=== PATIENT | female | born 1995 | race Two or more races ===

== ENCOUNTER 2024-01-02 11:23 | Outpatient (REF) | payer MEDICAID, OTHER, SELFPAY ==
[2024-01-02 13:27] LABS: Hematocrit 38.1 % (37.0-47.0); Hemoglobin 12.6 g/dl (12.0-16.0); Mean Corpuscular HGB Conc 33.1 g/dl (31.0-35.0); Mean Corpuscular Hemoglobin 29.1 pg (27.0-33.0); Mean Platelet Volume 10.7 fL (9.4-12.3); Platelet Count 195 X10*3/uL (160-400); Red Blood Count 4.33 X10*6/uL (4.20-5.50); Red Cell Distribution Width 13.7 % (11.0-16.0); White Blood Count 5.9 X10*3/uL (4.8-10.8)
[2024-01-02 13:57] LABS: Estimated Average Glucose 94 mg/dL; Hemoglobin A1c % 4.9 % (<6.0)
[2024-01-02 14:23] LABS: Alanine Aminotransferase 21 U/L (0-31); Albumin Level 4.7 g/dL (3.5-5.0); Alkaline Phosphatase 52 U/L (39-117); Anion Gap 13 (12-20); Aspartate Amino Transferase 22 U/L (5-31); Bilirubin Direct 0.2 mg/dL (0.0-0.5); Bilirubin Total 0.7 mg/dL (0.0-1.0); Blood Urea Nitrogen 11 mg/dL (9-16); Carbon Dioxide 24 mmol/L (22-29); Chloride 103 mmol/L (96-108); Cholesterol 259 mg/dL (<200); Estimated Glomerular Filt Rate > 60; Free T4 (Free Thyroxine) 0.72 ng/dL (0.71-1.85); Glucose Random 84 mg/dL (60-115); HCG Quantitative < 2 mIU/mL; HDL Cholesterol 121 mg/dL (>40); LDL Cholesterol Calculated 121 mg/dL (<100); Potassium 3.7 mmol/L (3.3-5.1); Sodium 136 mmol/L (135-145); Thyroid Stimulating Hormone 1.72 uIU/mL (0.32-4.0); Total Protein 8.2 g/dL (6.5-8.0); Triglycerides 87 mg/dL (<150); Vitamin D 25-OH Total 61.6 ng/mL (>30)
[2024-01-02 15:26] LABS: CT PCR NOT DETECTED (Not Detect.); NG PCR NOT DETECTED (Not Detect.)
[2024-01-03 08:27] LABS: Hepatitis A Antibody IgG REACTIVE (Nonreactive); ~Hepatitis A Antibody IgG 12.45 S/CO (0.00-0.99)
[2024-01-03 08:33] LABS: Mumps Virus IgG Antibody >300.00 AU/mL; Rubella IgG Antibody 9.05 Index; Varicella IgG Antibody <135.00 index
[2024-01-03 08:40] LABS: HBS Num1 0.73 mIU/mL (0-7.99); HBc Num1 0.09 S/CO (0.00-0.79); HBsAGNum1 0.38 S/CO (0.00-0.99); HIV AB/AG Nonreactive (Nonreactive); HIV Num 1 0.06 S/CO (0.00-0.99); Hepatitis B Core Antibody Nonreactive (Nonreactive); Hepatitis B Surface Antigen Negative (Negative); ~HepC Num1 0.12 S/CO (0.00-0.79); ~Hepatitis B Surface Antibody NONREACTIVE (Nonreactive); ~Hepatitis C Antibody Nonreactive (Nonreactive)
[2024-01-03 12:18] LABS: RPR Rapid Plasma Reagin REACTIVE (NON-REACTIVE)
[2024-01-04 22:09] LABS: TS Negative Control Passed; TS Panel A 0; TS Panel B 2; TS Positive Control Passed; TSpotTB Negative (Negative)
== END 2024-01-02 11:24 | disposition home or self-care (01) ==
LOC: HO.HHCL 11:23
PROVIDERS: Visit Provider Family Medicine
DX: Z00.00 Encounter for general adult medical examination without abnormal findings (principal); N92.0 Excessive and frequent menstruation with regular cycle
CPT/HCPCS: 36415; 80048; 80061; 80076; 82306; 83036; 84439; 84443; 84702; 85027; 86481; 86592; 86593; 86704; 86706; 86708; 86735; 86762; 86765; 86787; 86803; 87340; 87389; 87491; 87591

== ENCOUNTER 2024-01-19 10:44 | Emergency (ER) | payer MEDICAID, OTHER, SELFPAY ==
--- NOTE | ~2024-01-19 | US_ITS ---
EXAMINATION: US PELVIS CLINICAL INFORMATION: Pelvic pain, history of recent D&C. LMP approximately 3 weeks ago with ongoing bleeding. COMPARISON: None available. TECHNIQUE: Ultrasound of the pelvis is performed using both transabdominal and transvaginal transducers along with Doppler. Transvaginal imaging is performed due to inadequate visualization transabdominally. FINDINGS: Anteverted uterus with normal morphology measuring 8.8 x 3.2 x 3.8 cm. No uterine mass. Mild heterogeneity of the endometrial canal. Subcentimeter simple appearing cyst in the endometrium. No associated endometrial vascularity. The endometrium measures 0.6 cm in thickness. Cervix is not well seen due to shadowing from overlying bowel gas. Ovaries are normal in morphology with preserved flow on color Doppler at the moment of this examination. The right ovary measures 3.5 x 2.4 x 2.3 cm, 10 mL. The left ovary measures 2.7 x 2.1 x 2.1 cm, 6 mL. There is a 2.6 x 1.9 x 1.8 cm cystic observation in the right ovary with crenulated margins and peripheral color flow, most consistent with a corpus luteal cyst. There is a simple appearing dominant follicle in the left ovary measuring 1.3 cm. Nonspecific small amount of free fluid in the cul-de-sac and adjacent to the right adnexa. Engorged periovarian vasculature on the left adnexa. US/US pelvic and transvaginal IMPRESSION: 1. Mild heterogeneity of the endometrial canal without discrete associated vascularity, most likely related to blood products. Less likely, retained products of conception. Recommend clinical correlation. 2. Nonspecific simple appearing cyst in the upper endometrium, could be posttraumatic in etiology following D&C. Recommend follow-up with pelvic ultrasound in 3-6 weeks. 3. Engorged periovarian vasculature in the left adnexa which could be seen in the setting of pelvic venous insufficiency in the appropriate clinical context. 4. Small amount of free fluid in the cul-de-sac and adjacent to the right ovary, likely physiologic. Electronically signed by: Jodie Lopez MD 01/19/2024 03:03 PM EDT
[2024-01-19 10:56] VITALS: BP 107/63; PULSE 57; RESP 14; TEMP 36.2; O2SAT 100; BMI 23.1
[2024-01-19 11:36] LABS: MANUAL DIFF FLAG NO
[2024-01-19 11:38] LABS: Basophils Percent Auto 0.2 % (0-2); Eosinophils Absolute Auto 0.1 X10*3/uL (0.0-0.4); Eosinophils Percent Auto 1.3 % (0-4); Imm Gran Abs Auto 0.02 X10*3/uL (0.00-0.03); Imm Gran Pct Auto 0.3 % (0.0-0.4); Lymphocytes Percent Auto 49.3 % (20-40); Mean Corpuscular HGB Conc 33.3 g/dl (31.0-35.0); Mean Corpuscular Hemoglobin 29.3 pg (27.0-33.0); Mean Platelet Volume 9.9 fL (9.4-12.3); Monocytes Absolute Auto 0.5 X10*3/uL (0.1-1.2); Monocytes Percent Auto 7.4 % (2-11); Neutrophils Absolute Auto 2.5 x10*3/uL (2.0-8.3); Neutrophils Percent Auto 41.5 % (45-73); Platelet Count 189 X10*3/uL (160-400); Red Blood Count 4.43 X10*6/uL (4.20-5.50); Red Cell Distribution Width 13.1 % (11.0-16.0); White Blood Count 6.1 X10*3/uL (4.8-10.8)
[2024-01-19 11:46] LABS: INTERNATIONAL NORM RATIO 0.9 (0.9-1.1); Prothrombin Time 11.5 SEC (11.1-13.3)
[2024-01-19 11:49] LABS: Partial Thromboplastin Time 31.3 SEC (26.0-36.8)
[2024-01-19 12:00] LABS: Alanine Aminotransferase 31 U/L (0-31); Albumin Level 4.7 g/dL (3.5-5.0); Alkaline Phosphatase 55 U/L (39-117); Anion Gap 9 (12-20); Aspartate Amino Transferase 26 U/L (5-31); Bilirubin Direct 0.2 mg/dL (0.0-0.5); Bilirubin Total 0.5 mg/dL (0.0-1.0); Blood Urea Nitrogen 7 mg/dL (9-16); Carbon Dioxide 28 mmol/L (22-29); Chloride 106 mmol/L (96-108); Creatinine Clr Calc Pharmacy 101.7; Estimated Glomerular Filt Rate > 60; Glucose Random 70 mg/dL (60-115); Potassium 3.9 mmol/L (3.3-5.1); Sodium 139 mmol/L (135-145); Total Protein 8.2 g/dL (6.5-8.0)
[2024-01-19 12:05] LABS: HCG Quantitative < 2 mIU/mL
--- NOTE | 2024-01-19 12:22 | ED.GENADULT ---
HPI - General Adult General Chief complaint: Vaginal Bleeding Stated complaint: Vomiting/diarrhea Time Seen by Provider: 01/19/24 11:09 Source: patient, RN notes reviewed and historical interpreter Mode of arrival: ambulatory Limitations: language barrier History of Present Illness ED Provider: Ewelina Shields PA-C HPI narrative: This is a 28-year-old Slovenian-speaking female, , who presents emergency department with complaints of pelvic pain and vaginal bleeding. Patient reports that approximately 2 months ago she was 6 weeks along in her partner wanted her to have a . She [facility] they gave her sedation and used a ?suction device? to remove the fetus. Patient states that since this procedure she has had ongoing bleeding intermittently. She states that over the last 3 weeks she has had worsening suprapubic cramping. She states that she tested positive for chlamydia several weeks ago and was treated for this. She also tested positive for syphilis which she has had multiple injections for for treatment. She is currently being monitored by the [facility] for this. She denies any dysuria, hematuria, urinary frequency or urgency. She has been taking ibuprofen at home which has provided her with little relief. Denies any abnormal vaginal discharge. Denies any fevers, chills, chest pain, shortness breath, body aches, nausea, vomiting or diarrhea. MD complaint: Pelvic pain, vag bleeding Onset (ago): month(s) Relieving factors: none Exacerbating factors: none Associated symptoms: denies other symptoms Treatments prior to arrival: none Related Data Previous Rx's ?Medication ?Instructions ?Recorded doxycycline hyclate 100 mg capsule 100 mg PO BID 14 days #28 caps 01/19/24 metronidazole 500 mg tablet 500 mg PO BID 14 days #28 tabs 01/19/24 nitrofurantoin 100 mg PO Q12H 5 days #10 caps 01/19/24 monohydrate/macrocrystals 100 mg capsule (Macrobid) Allergies Allergy/AdvReac Type Severity Reaction Status Date / Time No Known Allergies Allergy Verified 01/19/24 11:00 Review of Systems Review of Systems: Yes all other systems are reviewed and are negative Constitutional: Constitutional: Reports as per HPI Physical Exam ED Vital Signs: Vital Signs - 24 hr 01/19/24 10:56 01/19/24 14:00 01/19/24 18:33 Temperature 97.2 F 98.4 F 98.4 F Pulse Rate 57 71 71 Respiratory Rate 14 18 18 Blood Pressure 107/63 102/52 L 102/52 L Pulse Oximetry 100 96 96 Oxygen Delivery Method Room Air Room Air Room Air BMI result Body Mass Index 23.1 Const General: cooperative, comfortable and no acute distress Orientation/consciousness: patient oriented x3 Limitations: no limitations HENMT Head: Yes normal to inspection, Yes normocephalic and Yes atraumatic Ears: hearing grossly normal bilaterally General nose exam: Normal external nose present Face and sinus: Yes normal facial exam Mouth: Normal oral and palatal mucosa present, oropharynx normal and moist mucous membranes Throat: Yes posterior oropharynx normal Eyes General: appearance normal, both eyes and all related structures Eyelids: Yes eyelids normal Conjunctivae: conjunctivae normal Sclerae: sclerae normal Pupils: Equal, round and reactive pupils present EOM: EOMs intact bilaterally Neck Neck: Yes normal visual inspection, Yes full ROM and Yes no lymphadenopathy Lymphatic: no lymphadenopathy noted Chest Chest palpation & inspection: normal inspection of the chest Resp Effort & Inspection: normal respiratory effort and able to speak in complete sentences Auscultation: clear to auscultation bilaterally, no crackles, no rales, no rhonchi and no wheezes Cardio Rate: regular rate Rhythm: regular rhythm Heart sounds: S1 normal heart sound present and S2 normal heart sound present GI Other: Suprapubic tenderness on examination. Inspection: Yes normal to inspection Other: examination performed with research tech present at all times. Normal external genitalia Vaginal vault, with closed cervical os, scant white, greenish tinge vaginal discharge present, no blood in vaginal vault. She does have cervical motion tenderness. He also has tenderness palpation along the left adnexal and right adnexal regions. Skin General skin exam: no rashes or lesions noted Trauma: no lacerations or abrasions Wounds: no wounds Neuro General: patient oriented x3 and moves all extremities Cranial nerves: Yes Equal, round and reactive pupils present Extrem General: Yes normal to inspection Right upper extremity: normal to inspection Left upper extremity: normal to inspection Right lower extremity: normal to inspection Left lower extremity: normal to inspection Medications Administered Discontinued Medications Generic Name Dose Route Start Last Admin Trade Name Freq PRN Reason Stop Dose Admin Ceftriaxone Sodium 1 gm/ 0 gm 01/19/24 18:06 01/19/24 18:27 Lidocaine HCl 2.1 ml IM 01/19/24 18:07 1 kit ONCE ONE Administration Medical Decision Making Medical Decision Making [facility] Narrative: This is a 28-year-old Slovenian-speaking female who presents emergency department with complaints of abnormal uterine bleeding for the last 2 months after having a D&C performed 2 months ago. She states that over the last 3 weeks she has had ongoing pelvic pain. She states that she had an episode of abnormal uterine bleeding yesterday. She states that she saturated approximately 4-6 pads throughout the day. She states that she tested positive for chlamydia over the course of the last 2 months, and she was treated. She also tested positive for syphilis, she is currently being followed by the [facility] for this. She last received a penicillin G injection yesterday. On examination, she does have suprapubic tenderness on examination. She also has vaginal discharge and cervical motion tenderness, concerning for pelvic inflammatory disease. Given recent D&C, ultrasound was performed. Pelvic ultrasound revealing mild heterogenicity of the endometrial canal without discrete associated vascularity, most likely related to blood products, less likely retained products of conception. There is a simple appearing cyst in the upper endometrium. There is also an engorged periovarian vasculature in the left adnexa which could be seen in the setting of pelvic venous insufficiency. There is also a small amount of free fluid in the cul-de-sac. I discussed this workup and patient's case with KHALIDA, Dr. Burleson. He recommends testing for chlamydia and gonorrhea. Also recommends 1 time dose of ceftriaxone, discharged on Flagyl, doxycycline, and Macrobid to treat for urinary tract infection as well. She was given referral to his office for further management symptoms. She was given strict return precautions. She understands and agrees with plan. Patient stable for discharge. Differential Diagnosis Differential Diagnoses: The differential diagnosis associated with the presentation includes Pelvic inflammatory disease, UTI, retained products of conception, , STI Admission/Observation Consideration of admission/observation: Escalation of care including admission/observation considered Consult Healthcare Provider Management of the patient was discussed with: [employer] Inspector KHALIDA Ann Lab Data [facility] Lab Attestation statement: I reviewed the patient's lab results. No leukocytosis, stable H&H, chemistry within normal limits, urine with moderate leuk esterases, will treat as urinary tract infection. She tested positive for bacterial vaginosis. HSV pending 01/19/24 11:31 01/19/24 11:31 Labs: Lab Results 01/19/24 01/19/24 01/19/24 Range/Units 11:31 12:17 12:42 WBC 6.1 (4.8-10.8) X10*3/uL RBC 4.43 (4.20-5.50) X10*6/uL Hgb 13.0 (12.0-16.0) g/dl Hct 39.0 (37.0-47.0) % MCV 88.0 (80.0-98.0) fL MCH 29.3 (27.0-33.0) pg MCHC 33.3 (31.0-35.0) g/dl RDW 13.1 (11.0-16.0) % Plt Count 189 (160-400) X10*3/uL MPV 9.9 (9.4-12.3) fL Immature Gran % (Auto) 0.3 (0.0-0.4) % Neut % (Auto) 41.5 L (45-73) % Lymph % (Auto) 49.3 H (20-40) % Jay % (Auto) 7.4 (2-11) % Eos % (Auto) 1.3 (0-4) % Baso % (Auto) 0.2 (0-2) % Lymph # (Auto) 3.0 (1.2-4.9) X10*3/uL Jay # (Auto) 0.5 (0.1-1.2) X10*3/uL Eos # (Auto) 0.1 (0.0-0.4) X10*3/uL Baso # (Auto) 0.0 (0.0-0.2) X10*3/uL Abs Immat Gran (auto) 0.02 (0.00-0.03) X10*3/uL Absolute Neuts (auto) 2.5 (2.0-8.3) x10*3/uL Absolute Nucleated RBC 0.000 (0.0-0.012) X10*3/uL Nucleated RBC % (auto) 0.0 (0.0-0.2) /100WBC PT 11.5 (11.1-13.3) SEC INR 0.9 (0.9-1.1) APTT 31.3 (26.0-36.8) SEC Sodium 139 (135-145) mmol/L Potassium 3.9 (3.3-5.1) mmol/L Chloride 106 (96-108) mmol/L Carbon Dioxide 28 (22-29) mmol/L Anion Gap 9 L (12-20) BUN 7 L (9-16) mg/dL Creatinine 0.77 (0.5-1.4) mg/dL Estim Creat Clear Calc 101.7 Estimated GFR > 60 Random Glucose 70 (60-115) mg/dL Calcium 10.0 (8.4-10.2) mg/dL Total Bilirubin 0.5 (0.0-1.0) mg/dL Direct Bilirubin 0.2 (0.0-0.5) mg/dL AST 26 (5-31) U/L ALT 31 (0-31) U/L Alkaline Phosphatase 55 (39-117) U/L Total Protein 8.2 H (6.5-8.0) g/dL Albumin 4.7 (3.5-5.0) g/dL Beta HCG, Quant < 2 mIU/mL Urine Color Yellow Urine Appearance Turbid Urine pH 8.5 (5.0-9.0) Ur Specific [place] 1.025 (1.005-1.025) Urine Protein 30 (1+) H (Neg-Trace) mg/dL Urine Glucose (UA) Negative (Negative) mg/dL Urine Ketones Negative (Negative) mg/dL Urine Blood Negative (Negative) Urine Nitrite Negative (Negative) Ur Leukocyte Esterase Moderate (2+) H (Negative) Urine RBC 0-2 (0-2) /HPF Urine WBC 6-10 (0-5) /HPF Ur Squamous Epith Cells 11-20 (0-2) /HPF Other Crystals Present Urine Bacteria 2+ (None Seen) Hyaline Casts 0-2 (0-2) /LPF Chlam trachomat DNA PCR NOT DETECTED (Not Detect.) N.gonorrhoeae DNA (PCR) NOT DETECTED (Not Detect.) T. vaginalis (PCR) NOT DETECTED (Not Detect) Bact Vaginosis (PCR) POSITIVE A (Negative) C. krusei/glabrata (PCR) NOT DETECTED (Not Detect) Shira group (PCR) NOT DETECTED (Not Detect) Radiology Impression Discussion of test interpretation with radiology: I have reviewed the radiologist's reading. Radiologist Impression: US/US pelvic and transvaginal IMPRESSION: 1. Mild heterogeneity of the endometrial canal without discrete associated vascularity, most likely related to blood products. Less likely, retained products of conception. Recommend clinical correlation. 2. Nonspecific simple appearing cyst in the upper endometrium, could be posttraumatic in etiology following D&C. Recommend follow-up with pelvic ultrasound in 3-6 weeks. 3. Engorged periovarian vasculature in the left adnexa which could be seen in the setting of pelvic venous insufficiency in the appropriate clinical context. 4. Small amount of free fluid in the cul-de-sac and adjacent to the right ovary, likely physiologic. Electronically signed by: Jodie Lopez MD 01/19/2024 03:03 PM EDT RP Dictated By: Jodie Lopez Discharge Plan Discharge Clinical Impression: Abnormal uterine bleeding (AUB), Pelvic pain Patient Disposition: Home, Self-Care Instructions: Dysfunctional Uterine Bleeding (ED), Pelvic Pain in Women (ED) Additional Instructions: You were seen in the emergency department due to continued pelvic pain and bleeding. You tested positive for bacterial vaginosis, this is an overgrowth of the normal estefania in your vagina. Your ultrasound shows pelvic congestion syndrome. Urine appears to be infected. We gave you a dose of ceftriaxone in the emergency room. Please take all prescribed medications as directed. Finish the entire courses of antibiotics even if your symptoms improve. If any new or worsening symptoms occur including but not limited to worsening pain, fevers, chills, significant vaginal bleeding, please return. Follow-up with the OBGYN, call on Monday to make an appointment. Prescriptions: New nitrofurantoin monohyd/m-cryst [Macrobid] 100 mg capsule 100 mg PO Q12H 5 Days Qty: 10 0RF Rx Instructions: must administer with a meal/food doxycycline hyclate 100 mg capsule 100 mg PO BID 14 Days Qty: 28 0RF metronidazole 500 mg tablet 500 mg PO BID 14 Days Qty: 28 0RF Referrals: [facility] [place] Women's Services [Provider Group] Stand Alone Forms: Work/School Release Interventions: ED Discharge Assessment Last Done: 01/19/24 18:33 Discharge Date/Time: 01/19/24 18:33 Print Language: Slovenian
[2024-01-19 12:28] LABS: Appearance Urine Turbid; Color Urine Yellow; Glucose Urine UA Negative (Negative); Leukocyte Esterase Urine Moderate (2+) (Negative); Nitrite Urine Negative (Negative); PH 8.5 (5.0-9.0); Specific Gravity - Urine 1.025 (1.005-1.025); UMIC TRIGGER UACC YES; Urine Blood Negative (Negative); Urine Ketones Negative (Negative); Urine Protein 30 (1+) mg/dL (Neg-Trace)
[2024-01-19 12:36] LABS: Bacteria Urine 2+ (None Seen); Hyaline Casts Urine 0-2 /LPF (0-2); Other Crystals Urine Present; RBC Urine 0-2 /HPF (0-2); UACC Culture Trigger YES
[2024-01-19 13:54] LABS: Bacterial Vaginosis PCR POSITIVE (Negative); Candida Group PCR NOT DETECTED (Not Detect); Candida glab krusei PCR NOT DETECTED (Not Detect); Trichomonas vaginalis PCR NOT DETECTED (Not Detect)
[2024-01-19 14:00] VITALS: BP 102/52; PULSE 71; RESP 18; TEMP 36.9; O2SAT 96
--- NOTE | 2024-01-19 16:34 | P.CONOB_ITS ---
REFRIGERATION REPAIR SUPERVISOR - CN: HPI Data of Consult Consult date: 01/19/24 Primary Care Provider: [facility] Consult Narrative Narrative: I was consulted on Elizabet Bridges who is a 28 year old female presenting to the emergency room complaining of pelvic pain of 3 weeks' duration associated withvagin al bleeding. The patient is status post suction D&C for termination of 6 weeks ago. Since then the patient has been having vaginal bleeding intermittently. She states that over the last week she has had worsening suprapubic cramping. In the emergency room H&H within normal, hCG less than 2, urinalysis was positive for leukocyte esterase, pelvic ultrasound was done. cc:: CC: OB [facility] Social History Social History Advance Directives: No Advance Directives Information Provided: Yes Meds Allergies Allergy/AdvReac Type Severity Reaction Status Date / Time No Known Allergies Allergy Verified 01/19/24 11:00 REFRIGERATION REPAIR SUPERVISOR Physical Exam Vitals Vital signs: Temp Pulse Resp BP Pulse Ox O2 Del Method 98.4 F 71 18 102/52 L 96 Room Air 01/19/24 14:00 01/19/24 14:00 01/19/24 14:00 01/19/24 14:00 01/19/24 14:00 01/19/24 14:00 BMI result Body Mass Index 23.1 Additional Comments: Physical exam reported by RUFINO Rabago as the following suprapubic tenderness, cervical motion, uterine or adnexal tenderness flow cervix , no blood per vagina I am in no evidence of active bleeding REFRIGERATION REPAIR SUPERVISOR - Results Labs 01/19/24 11:31 01/19/24 11:31 Labs: Short CBC 01/19/24 Range/Units 11:31 WBC 6.1 (4.8-10.8) X10*3/uL Hgb 13.0 (12.0-16.0) g/dl Hct 39.0 (37.0-47.0) % Plt Count 189 (160-400) X10*3/uL BMP 01/19/24 11:31 Sodium 139 Potassium 3.9 Chloride 106 Carbon Dioxide 28 BUN 7 L Creatinine 0.77 Calcium 10.0 Liver Function 01/19/24 Range/Units 11:31 Total Bilirubin 0.5 (0.0-1.0) mg/dL Direct Bilirubin 0.2 (0.0-0.5) mg/dL AST 26 (5-31) U/L ALT 31 (0-31) U/L Alkaline Phosphatase 55 (39-117) U/L Albumin 4.7 (3.5-5.0) g/dL Urine 01/19/24 Range/Units 12:17 Urine Color Yellow Urine Appearance Turbid Urine pH 8.5 (5.0-9.0) Ur Specific [place] 1.025 (1.005-1.025) Urine Protein 30 (1+) H (Neg-Trace) mg/dL Urine Glucose (UA) Negative (Negative) mg/dL Imaging US - abdomen: Radiologist's impression: ITS Impressions Pelvic/Transvag US 01/19/24 12:58 IMPRESSION: 1. Mild heterogeneity of the endometrial canal without discrete associated vascularity, most likely related to blood products. Less likely, retained products of conception. Recommend clinical correlation. 2. Nonspecific simple appearing cyst in the upper endometrium, could be posttraumatic in etiology following D&C. Recommend follow-up with pelvic ultrasound in 3-6 weeks. 3. Engorged periovarian vasculature in the left adnexa which could be seen in the setting of pelvic venous insufficiency in the appropriate clinical context. 4. Small amount of free fluid in the cul-de-sac and adjacent to the right ovary, likely physiologic. Electronically signed by: Jodie Lopez MD 01/19/2024 03:03 PM EDT RP Assessment and Plan (1) Abnormal uterine bleeding (AUB): Status: Acute Since the patient is not actively bleeding with normal H&H and closed cervix and an ultrasound low likelihood of retained products of conception, recommended outpatient close follow-up for workup and management of abnormal uterine bleeding including the finding of abnormal endometrium by ultrasound. Instructions to be given to the patient to call or come back to emergency room in case of heavy vaginal bleeding. (2) Pelvic pain: Status: Acute Recommended the following: Send urine for culture, treat with antibiotics for UTI, suggest Macrobid 100 mg p.o. b.i.d. for 5 days. GC/CT with BV panel and Trichomonas to be collected. Since the patient has suprapubic tenderness tenderness, cervical motion and uterine with adnexal tenderness, recommended to treat for PID with outpatient CDC regimen including ceftriaxone 500 mg IM x1, Flagyl 500 mg p.o. b.i.d. with doxycycline 100 mg p.o. b.i.d. for 14 days to follow-up in the office within few days. Instructions to be given to patient to come back to emergency room in case of nausea or vomiting, fever above 100.4, persistence or worsening of her pain. I spent a total of 20 minute reviewing the chart, communicating to the emergency room provider and documenting medical record.
--- NOTE | 2024-01-19 16:38 | PC.NURSE ---
spoke with Shani in Lab- Ct/NG added on
[2024-01-19] MEDS: cefTRIAXone sodium 1 GM, Lidocaine HCl 1 % MPF 2.1 ML IM (18:27)
[2024-01-19 18:33] VITALS: BP 102/52; PULSE 71; RESP 18; TEMP 36.9; O2SAT 96
[2024-01-19 18:39] LABS: CT PCR NOT DETECTED (Not Detect.); NG PCR NOT DETECTED (Not Detect.)
== END 2024-01-19 18:33 | disposition home or self-care (01) ==
PROVIDERS: Physician Assistant Medical; Emergency Provider Emergency Medicine
DX: N93.9 Abnormal uterine and vaginal bleeding, unspecified (principal); R10.2 Pelvic and perineal pain
CPT/HCPCS: 0352U; 36415; 76830; 76856; 80048; 80076; 81001; 84702; 85025; 85610; 85730; 87086; 87255; 87491; 87591; 96372; 99283; 99284; J0696

== ENCOUNTER 2024-01-25 09:17 | Outpatient (AMB) | payer SELFPAY ==
[2024-01-25 09:39] VITALS: BP 102/60; BMI 23.1
--- NOTE | 2024-01-25 09:39 | MHC.OFFVIS ---
Vital Signs 01/25/24 09:39 Height 5 ft 6 in Weight 143 lb 4.807 oz BMI 23.1 BP 102/60 Intake Visit Reasons: PID/AUB Chief Substation Operator Required: Yes Chief Substation Operator Language: [employer] Management Technician Services: Chief Substation Operator Present (in person) Chief Substation Operator Name: Radha DILLARD Information Interpreted: non-clinical & clinical Flag Decorator: Flag Decorator Present (Radha DILLARD) Accompanied by: Self / Same As Patient Allergies No Known Allergies Allergy (Verified 01/25/24 09:44) Is last menstrual period known: Yes HPI Comments Details: Presenting for follow-up from emergency room visit few days ago with the patient presented to the emergency room complaining of pelvic pain of 3 weeks' duration associated with vaginal bleeding. The patient underwent suction D&C for termination of 6 weeks ago. Since then the patient has been having vaginal bleeding intermittently associated with pelvic cramping. In the emergency room the following workup was done: H&H within normal hCG less than 2 GC/CT, BV panel negative urinalysis was positive for leukocyte esterase, urine culture was negative Pelvic ultrasound showed the following: IMPRESSION: 1. Mild heterogeneity of the endometrial canal without discrete associated vascularity, most likely related to blood products. Less likely, retained products of conception. Recommend clinical correlation. 2. Nonspecific simple appearing cyst in the upper endometrium, could be posttraumatic in etiology following D&C. Recommend follow-up with pelvic ultrasound in 3-6 weeks. 3. Engorged periovarian vasculature in the left adnexa which could be seen in the setting of pelvic venous insufficiency in the appropriate clinical context. 4. Small amount of free fluid in the cul-de-sac and adjacent to the right ovary, likely physiologic. The patient was given ceftriaxone 500 mg IM and was discharged on doxycycline/Flagyl for possible endometritis . Since then the patient is doing well , her pain has all completely resolved , no fever or chills, no nausea or vomiting, no pelvic pain or abdominal and no vaginal bleeding . [facility] Surgical History Hx of hernia repair Hx of dilation and curettage Family History Mother Hyperlipidemia Brother Autism Asperger syndrome Social History Household Members Other:: son Housing Other:: nursing home Alcohol intake: current Alcohol intake frequency: holidays/special occasions only Patient Tobacco Use Status: Never used Tobacco Current occupational status: employed Current occupation: [employer] Sexually active: No Sexual orientation: Straight/Heterosexual Gender identity: Female Female Reproductive History Menstrual Total pregnancies: 4 Full term: 1 Number of Living Children: 1 Ab spontaneous: 3 Review of Systems Const All systems reviewed & are unremarkable except as noted in HPI and below Physical Exam Vital Signs: Last Vital Signs BP 102/60 01/25/24 09:39 BMI result Body Mass Index 23.1 GI Palpation (GI): Soft to palpation and nontender General: Yes no CVA tenderness External Female Exam: normal external appearance and normal appearance of the urethra Speculum Exam - Vagina: normal appearance of the vagina, normal palpation, no lesions and no masses Speculum Exam - Cervix: normal appearance of the cervix, normal palpation, no lesions, no masses and nontender Bimanual exam- vagina & uterus: normal bimanual exam, normal palpation, uterine size normal, normal palpation, uterine shape normal, No Cervical tenderness present and non-tender Bimanual Exam- Adnexa, other: normal adnexae Back/Spine/Pelvis Back: no CVA tenderness Results AMB Test Urine AMB Test Urine Negative Last Edit by Radha Freedman CMA on 01/25/24 09:52 Results Reviewed Results Reviewed: Laboratory Last Values Tst Clinic Negative 01/25/24 09:51 Assessment & Plan Assessment & Plan (1) Abnormal uterine bleeding (AUB): Code(s): N93.9 - Abnormal uterine and vaginal bleeding, unspecified Category: Medical Plan: Will order CBC, TSH, prolactin, HCG, . Discussed with the patient the different causes of abnormal bleeding including thyroid disorders, uterine and ovarian pathology and other potential causes. Discussed with the patient the work up including CBC (to r/o anemia), TSH, prolactin. All questions answered and the patient verbalized understanding. Instructed the patient to schedule a follow-up appointment in 2 weeks. (2) Endometritis: Code(s): N71.9 - Inflammatory disease of uterus, unspecified Category: Medical Plan: Instructions given the patient to complete the 14 day course of doxycycline/flat (3) Abnormal ultrasound of endometrium: Code(s): R93.5 - Abnormal findings on diagnostic imaging of other abdominal regions, including retroperitoneum Category: Medical Plan: Discussed with the patient the finding on ultrasound was in college vasculature possible pelvic congestion syndrome or nonspecific findings in addition the and normal endometrium possibly related to previous D&C, recommended repeat ultrasound in 3 months. Instructions given the patient to schedule ultrasound appointment and a follow-up appointment afterwards in 3 months. All questions answered, the patient verbalized understand (4) Family planning: Code(s): Z30.09 - Encounter for other general counseling and advice on contraception Category: Social Hx Plan: Discussed with the patient the different options of control including control pills/Nuvaring, Depo Medroxy Progesterone Acetate, IUD ( levonorgestrel, Copper), sterilization. All the pros, cons, risks and benefits of each were discussed with the patient. The patient decided to go think about it and get back to us. Orders: Orders HCG Quantitative Today N93.9 - Abnormal uterine and vaginal bleeding, unspecified Complete Blood Count no Diff Today N93.9 - Abnormal uterine and vaginal bleeding, unspecified US pelvic and transvaginal 3 Months R93.5 - Abnormal findings on diagnostic imaging of other abdominal regions, including retroperitoneum AMB HCG Urine Test Today Z32.02 - Encounter for test, result negative TSH reflex Free T4 Today N93.9 - Abnormal uterine and vaginal bleeding, unspecified Prolactin Today N93.9 - Abnormal uterine and vaginal bleeding, unspecified Coding Level of Care Code Est Pt Level 3 (34131) Diagnoses Abnormal uterine bleeding (AUB) N93.9 Endometritis N71.9 Abnormal ultrasound of endometrium R93.5 Family planning Z30.09
== END 2024-01-25 10:10 | disposition home or self-care (01) ==
PROVIDERS: Visit Provider Obstetrics & Gynecology
DX: N93.9 Abnormal uterine and vaginal bleeding, unspecified (principal); N71.9 Inflammatory disease of uterus, unspecified; R93.5 Abnormal findings on diagnostic imaging of other abdominal regions, including retroperitoneum; Z30.09 Encounter for other general counseling and advice on contraception; Z32.02 Encounter for pregnancy test, result negative
CPT/HCPCS: 99213

== ENCOUNTER 2024-01-25 09:17 | Outpatient (REF) | payer MEDICAID, OTHER, SELFPAY ==
[2024-01-25 11:44] LABS: Hematocrit 35.2 % (37.0-47.0); Hemoglobin 11.7 g/dl (12.0-16.0); Mean Corpuscular HGB Conc 33.2 g/dl (31.0-35.0); Mean Corpuscular Hemoglobin 29.3 pg (27.0-33.0); Mean Corpuscular Volume 88.2 fL (80.0-98.0); Mean Platelet Volume 9.9 fL (9.4-12.3); Platelet Count 192 X10*3/uL (160-400); Red Blood Count 3.99 X10*6/uL (4.20-5.50); Red Cell Distribution Width 13.2 % (11.0-16.0); White Blood Count 5.6 X10*3/uL (4.8-10.8)
[2024-01-25 12:37] LABS: HCG Quantitative < 2 mIU/mL; TSH reflex Free T4 1.08 uIU/mL (0.32-4.0)
[2024-01-26 09:08] LABS: Prolactin 9.8 ng/mL
== END 2024-01-25 09:18 | disposition home or self-care (01) ==
LOC: HO.LAB 09:17
PROVIDERS: Visit Provider Obstetrics & Gynecology
DX: Z30.09 Encounter for other general counseling and advice on contraception (principal); N93.9 Abnormal uterine and vaginal bleeding, unspecified; Z32.02 Encounter for pregnancy test, result negative; N71.9 Inflammatory disease of uterus, unspecified; R93.5 Abnormal findings on diagnostic imaging of other abdominal regions, including retroperitoneum
CPT/HCPCS: 36415; 81025; 84146; 84443; 84702; 85027; 99212

== ENCOUNTER 2024-03-05 17:38 | Outpatient (REF) | payer SELFPAY ==
[2024-03-15 10:47] LABS: Trichomonas (NAAT) NOT DETECTED
[2024-03-15 10:48] LABS: C. trachomatis RNA TMA NOT DETECTED; N. gonorrhoeae RNA TMA NOT DETECTED
== END 2024-03-05 17:39 | disposition home or self-care (01) ==
LOC: HO.LNP 17:38
PROVIDERS: Visit Provider Advanced Practice Midwife
DX: Z01.419 Encounter for gynecological examination (general) (routine) without abnormal findings (principal); Z20.2 Contact with and (suspected) exposure to infections with a predominantly sexual mode of transmission
CPT/HCPCS: 87491; 87591; 87661; 88175

== ENCOUNTER 2024-03-25 15:47 | Outpatient (REF) | payer SELFPAY ==
[2024-03-26 03:48] LABS: HIV AB/AG Nonreactive (Nonreactive); HIV Num 1 0.06 S/CO (0.00-0.99)
[2024-03-26 15:58] LABS: HCV RNA PCR Qn <1.18 NOT DETECTED Log IU/mL (NOT DETECTED); HCV RNA PCR Qn <15 NOT DETECTED IU/mL (NOT DETECTED)
[2024-03-26 21:09] LABS: RPR Rapid Plasma Reagin REACTIVE (NON-REACTIVE)
== END 2024-03-25 15:48 | disposition home or self-care (01) ==
LOC: HO.HHCL 15:47
PROVIDERS: Visit Provider Advanced Practice Midwife
DX: Z13.89 Encounter for screening for other disorder (principal)
CPT/HCPCS: 36415; 86592; 86593; 87389; 87522

== ENCOUNTER 2024-04-03 14:20 | Outpatient (REF) | payer SELFPAY ==
[2024-04-05 13:28] LABS: RPR Rapid Plasma Reagin REACTIVE (NON-REACTIVE)
[2024-04-12 08:20] LABS: RPR Quantitative Reactive 1:2 (Nonreactive); T.Pallidum Particle Agg Test Reactive (Nonreactive)
== END 2024-04-03 14:21 | disposition home or self-care (01) ==
LOC: HO.HHCL 14:20
PROVIDERS: Visit Provider Family Medicine
DX: A53.0 Latent syphilis, unspecified as early or late (principal)
CPT/HCPCS: 36415; 86592; 86593

== ENCOUNTER 2024-04-12 17:43 | Outpatient (REF) | payer SELFPAY ==
[2024-04-13 05:38] LABS: CT PCR NOT DETECTED (Not Detect.); NG PCR NOT DETECTED (Not Detect.)
[2024-04-13 13:15] LABS: Bacterial Vaginosis PCR POSITIVE (Negative); Candida Group PCR NOT DETECTED (Not Detect); Candida glab krusei PCR NOT DETECTED (Not Detect); Trichomonas vaginalis PCR NOT DETECTED (Not Detect)
== END 2024-04-12 17:44 | disposition home or self-care (01) ==
LOC: HO.LNP 17:43
PROVIDERS: Visit Provider Family Medicine
DX: N93.9 Abnormal uterine and vaginal bleeding, unspecified (principal); Z11.3 Encounter for screening for infections with a predominantly sexual mode of transmission
CPT/HCPCS: 0352U; 87491; 87591

== ENCOUNTER 2024-04-23 14:59 | Outpatient (REF) | payer MEDICAID, OTHER, SELFPAY | END 2024-04-23 15:00 | disposition home or self-care (01) | LOC: HO.US 14:59 | PROVIDERS: PCP Family Medicine; Visit Provider Family Medicine | DX: R93.5 Abnormal findings on diagnostic imaging of other abdominal regions, including retroperitoneum (principal) | CPT/HCPCS: 76830; 76856 ==

== ENCOUNTER 2024-05-18 15:16 | Emergency (ER) | payer MEDICAID, OTHER, SELFPAY ==
--- NOTE | ~2024-05-18 | CT_ITS ---
CLINICAL HISTORY: abd pain s p procedure, r o tubo-ovarian abscess CT Abdomen and Pelvis W Contrast COMPARISON: None FINDINGS: Normal liver. Normal spleen. Normal kidneys. Normal adrenal glands. Normal pancreas. No visible cholelithiasis. No CT evidence of acute cholecystitis. No biliary dilation. No evidence of bowel obstruction or colitis. Normal appendix. Unremarkable bladder. Unremarkable uterus and ovaries. No ascites. No pneumoperitoneum. No lymphadenopathy. No acute fracture. No abdominal aortic aneurysm. IMPRESSION: No acute findings. This document has been electronically signed by: Santos Barros MD on 05/18/2024 23:54:57
[2024-05-18 15:45] VITALS: BP 108/58; PULSE 53; RESP 20; TEMP 36.8; O2SAT 100; BMI 24.9
--- NOTE | 2024-05-18 15:53 | ED_ITS ---
HPI - Female Genitourinary General Chief complaint: Vaginal Bleeding Stated complaint: vaginal bleeding/had procedure done within cervix Time Seen by Provider: 05/18/24 21:33 Source: patient Mode of arrival: ambulatory Limitations: no limitations History of Present Illness ED Provider: Dr. Jessica Blackwell HPI Narrative: Patient comes to the emergency room complaining of cervical, bilateral lower abdominal pain. Patient states that on May 07, she had a procedure for precancerous cells. Patient states that this was not a biopsy, this was done before. Patient states that she was doing well until the last 3 days. Patient states that over last few days she has noticed that she has heavy malodorous vaginal discharge and now it is bleeding. Patient states that her last menstrual period was on April 24, therefore she is not due for another menstrual period. Patient denies fever chills nausea vomiting or diarrhea. Patient states that at this time she is not concerned for any sexually transmitted diseases. However, patient does admit that she is currently being treated for syphilis. Related Data Previous Rx's ?Medication ?Instructions ?Recorded doxycycline hyclate 100 mg capsule 100 mg PO BID 14 days #28 caps 01/19/24 metronidazole 500 mg tablet 500 mg PO BID 14 days #28 tabs 01/19/24 nitrofurantoin 100 mg PO Q12H 5 days #10 caps 01/19/24 monohydrate/macrocrystals 100 mg capsule (Macrobid) cefuroxime axetil 500 mg tablet 500 mg PO BID 10 days #20 tabs 05/19/24 doxycycline hyclate 100 mg tablet 100 mg PO BID #20 tabs 05/19/24 metronidazole 500 mg tablet 500 mg PO BID #20 tabs 05/19/24 Allergies Allergy/AdvReac Type Severity Reaction Status Date / Time No Known Allergies Allergy Verified 05/18/24 15:50 Review of Systems 2 Review of Systems: Constitutional : No Weight loss, No Fever, No Chills, No Night Sweats, No Fatigue, No Malaise ENT/Mouth : No Hearing loss, No Ear Pain, No Nasal Congestion, No Sinus Pain, No Hoarseness, No sore throat, No Rhinorrhea, No Swallowing Difficulty Eyes: No Eye Pain, No Swelling, No Redness, No Foreign Body, No Discharge, No Vision Changes Cardiovascular : No Chest Pain, No SOB, No Dyspnea on Exertion, No Orthopnea, No Edema, No Palpitations Respiratory : No Cough, No Sputum, No Wheezing, No Smoke Exposure, No Dyspnea Gastrointestinal : No Nausea, No Vomiting, No Diarrhea, No Constipation, No abdominal Pain, No Hematochezia, No Melena Genitourinary : Complaining of pelvic pain after surgery, foul-smelling discharge, No Dysuria, No Urinary Frequency, No Hematuria, No Urinary Incontinence, No Urgency, No Flank Pain, No Urinary Flow Changes, No Hesitancy Musculoskeletal : No joint pain, No Myalgias, No Joint Swelling Skin : No Skin Lesions, No rash Neuro : No Weakness, No Numbness, No Paresthesias, No Loss of Consciousness, No Dizziness, No Headache Psych : No Anxiety/Panic, No Depression, No SI/HI/AH/VH, No Social Issues, Heme/Lymph: No Bruising, No Bleeding,No Lymphadenopathy Endocrine : No Polyuria, No Polydipsia, No Temperature Intolerance PMFSH Past Medical History Surgical History Hx of hernia repair Hx of dilation and curettage Family History Family History Mother Hyperlipidemia Brother Autism Asperger syndrome Social History Social History Household Members Other:: son Housing Other:: retirement Alcohol intake: current Alcohol intake frequency: holidays/special occasions only Patient Tobacco Use Status: Never used Tobacco Smoked in Last 30 Days: No Use of substances other than those prescribed or required for medical reasons: No Advance Directives: No Advance Directives Information Provided: Yes Do you have a plan to hurt others: No Plan Patient : No Current occupational status: employed Current occupation: [employer] Sexual orientation: Straight/Heterosexual Gender identity: Female Physical Exam 2 Vital Signs: Vital Signs: Last Vital Signs Temp 98.6 F 05/18/24 23:37 Pulse 52 05/18/24 23:37 Resp 16 05/18/24 23:37 BP 106/59 L 05/18/24 23:37 Pulse Ox 100 05/18/24 23:37 O2 Del Method Room Air 05/18/24 23:37 BMI result Body Mass Index 24.9 Const: Other: Appearance: Alert. Oriented X3. No acute distress. Well-appearing Eyes: Pupils equal, round and reactive to light. ENT: Pharynx normal. Neck: Normal inspection. Neck supple. No lymph nodes noted. No crepitus CVS: Normal heart rate and rhythm. Pulses normal. Normal S1 and S2 Respiratory: No respiratory distress. Breath sounds normal. No Wheezing. No rales Abdomen: Soft , discomfort to palpation in bilateral quadrants and suprapubic area. , there is a small to moderate amount of blood in the vaginal vault, foul- smelling yellowish grayish discharge. Patient had a moderately positive chandelier sign Skin: Skin warm and dry. Normal skin color. Normal skin turgor. Extremities: No lower extremity edema. No Lacerations. No Rash Neuro: Oriented X 3. No motor deficit. No sensory deficit. Moving all extremities. No slurred speech. CN 2 through 12 grossly intact Psych: calm, cooperative, normal affect Course Course Course Narrative: This is a Rapid Medical Examination (RME) performed by Fina Carey PA-C in triage. Full HPI, ROS, assessment and treatment plan per primary provider in the Main ED. 28 yo female here for eval of vaginal pain, bleeding, and purulent discharge x24 hours. reports having colposcopy on 05/07 with removal of precancerous lesion. was advised to come to the ED if she experience any vaginal bleeding prior to expected menstruation. denies abd pain, dysuria, flank pain. Admits to being sexually active approximately 2 weeks before her procedure. Has not had intercourse since her procedure. She was tested for STIs last month. Tested positive for BV and was subsequently treated with metronidazole. no further concern for STDs. LMP 04/24/24. Plan: labs + pelvic exam Medications Administered Discontinued Medications Generic Name Dose Route Start Last Admin Trade Name Freq PRN Reason Stop Dose Admin Ceftriaxone Sodium 1 gm 05/18/24 22:26 05/18/24 23:30 Ceftriaxone Sodium 1 Gm Vial IVPUSH 05/18/24 22:27 1 gm ONCE ONE Administration Doxycycline Hyclate 100 mg/ 250 mls @ 166.67 mls/hr 05/18/24 22:26 05/18/24 23:29 Sodium Chloride IV 05/18/24 23:55 166.67 mls/hr ONCE ONE Administration Metronidazole 500 mg in 100 mls @ 100 mls/hr 05/18/24 22:26 05/19/24 00:17 Flagyl IV 05/18/24 23:25 100 mls/hr ONCE ONE Administration Iohexol 85 ml 05/18/24 22:48 05/18/24 22:48 Iohexol 350 Mg/Ml 100 Ml Infus..Btl IV 05/18/24 22:49 85 ml ONCE ONE Administration Morphine Sulfate 1 mg 05/18/24 22:27 05/18/24 23:30 Morphine Sulfate 2 Mg/Ml Cartridge IVPUSH 05/18/24 22:28 1 mg ONCE ONE Administration Protocol Medical Decision Making Medical Decision Making [facility] Narrative: On physical exam, patient had moderate pain with very mild palpation around the cervix. , patient will be treated as PID. Patient will be receiving IV empiric treatment with ceftriaxone, doxycycline and metronidazole, and 1 dose of IV morphine while we get the results and CT scan back to rule out tubo-ovarian abscess. Patient's labs do not show any significant abnormality, white blood cell count 6.8. Patient has no fever chills, no episodes of hypotension. Sepsis not suspected. CT scan does not show any acute abnormality, unremarkable uterus and ovaries Overall patient well-appearing, vitals remained stable. Patient received the above-mentioned treatment. Patient will follow-up with her OBGYN/ surgeon. Differential Diagnosis Differential Diagnoses: The differential diagnosis associated with the presentation includes (Postop pain, STD, bacterial vaginosis, tubo-ovarian abscess) Admission/Observation Consideration of admission/observation: Escalation of care including admission/observation considered (Given patient's history and presentation, observation was considered) Lab Data [facility] Lab Attestation statement: I reviewed the patient's lab results. 05/18/24 16:15 05/18/24 16:15 Labs: Lab Results 05/18/24 05/18/24 Range/Units 16:15 23:21 WBC 6.8 (4.8-10.8) X10*3/uL RBC 3.90 L (4.20-5.50) X10*6/uL Hgb 11.3 L (12.0-16.0) g/dl Hct 33.2 L (37.0-47.0) % MCV 85.1 (80.0-98.0) fL MCH 29.0 (27.0-33.0) pg MCHC 34.0 (31.0-35.0) g/dl RDW 13.7 (11.0-16.0) % Plt Count 180 (160-400) X10*3/uL MPV 9.9 (9.4-12.3) fL Immature Gran % (Auto) 0.1 (0.0-0.4) % Neut % (Auto) 42.6 L (45-73) % Lymph % (Auto) 48.9 H (20-40) % Scott % (Auto) 6.9 (2-11) % Eos % (Auto) 1.5 (0-4) % Baso % (Auto) 0.0 (0-2) % Lymph # (Auto) 3.3 (1.2-4.9) X10*3/uL Scott # (Auto) 0.5 (0.1-1.2) X10*3/uL Eos # (Auto) 0.1 (0.0-0.4) X10*3/uL Baso # (Auto) 0.0 (0.0-0.2) X10*3/uL Abs Immat Gran (auto) 0.01 (0.00-0.03) X10*3/uL Absolute Neuts (auto) 2.9 (2.0-8.3) x10*3/uL Absolute Nucleated RBC 0.000 (0.0-0.012) X10*3/uL Nucleated RBC % (auto) 0.0 (0.0-0.2) /100WBC Sodium 135 (135-145) mmol/L Potassium 4.2 (3.3-5.1) mmol/L Chloride 107 (96-108) mmol/L Carbon Dioxide 21 L (22-29) mmol/L Anion Gap 11 L (12-20) BUN 17 H (9-16) mg/dL Creatinine 0.67 (0.5-1.4) mg/dL Estim Creat Clear Calc 113.0 Estimated GFR > 60 Random Glucose 85 (60-115) mg/dL Lactic Acid 0.7 (0.5-2.0) mmol/L Calcium 8.8 D (8.4-10.2) mg/dL Total Bilirubin 0.3 (0.0-1.0) mg/dL AST 17 (5-31) U/L ALT 19 (0-31) U/L Alkaline Phosphatase 49 (39-117) U/L Total Protein 7.3 (6.5-8.0) g/dL Albumin 4.2 (3.5-5.0) g/dL Urine Color Yellow Urine Appearance Clear Urine pH 6.0 (5.0-9.0) Ur Specific Hardin 1.015 (1.005-1.025) Urine Protein Negative (Neg-Trace) mg/dL Urine Glucose (UA) Negative (Negative) mg/dL Urine Ketones Negative (Negative) mg/dL Urine Blood Trace H (Negative) Urine Nitrite Negative (Negative) Ur Leukocyte Esterase Negative (Negative) Urine RBC 0-2 (0-2) /HPF Urine WBC 0-5 (0-5) /HPF Ur Squamous Epith Cells 0-2 (0-2) /HPF Urine Bacteria None Seen (None Seen) Hyaline Casts 0-2 (0-2) /LPF Urine Test NEGATIVE (NEGATIVE) Independent Interpretation I performed an independent interpretation of an: CT Scan Radiology Impression Discussion of test interpretation with radiology: I have reviewed the radiologist's reading. Radiologist Impression: FINDINGS: Normal liver. Normal spleen. Normal kidneys. Normal adrenal glands. Normal pancreas. No visible cholelithiasis. No CT evidence of acute cholecystitis. No biliary dilation. No evidence of bowel obstruction or colitis. Normal appendix. Unremarkable bladder. Unremarkable uterus and ovaries. No ascites. No pneumoperitoneum. No lymphadenopathy. No acute fracture. No abdominal aortic aneurysm. IMPRESSION: No acute findings. Critical Care Time Critical Care Time Critical Care Time: Yes Total Critical Care Time: 35 Attestation: I have personally provided critical care time. Time includes review of lab data, radiology results, discussion with consultants, and monitoring for potential decompensation. Intervention performed as documented. Discharge Plan Discharge Clinical Impression: Pelvic pain, Bloody vaginal discharge Patient Disposition: Home, Self-Care Instructions: Pelvic Pain (ED), Vaginal Discharge (ED) Additional Instructions: Your medications were sent to [address] [place] [address]. Make sure that you finish the entire course of antibiotics even if you feel better before completing the treatment. Please follow-up with your primary care physician tomorrow. If you have any worsening or new symptoms, please return to the emergency room or call 911 Prescriptions: New cefuroxime axetil 500 mg tablet 500 mg PO BID 10 Days Qty: 20 0RF metronidazole 500 mg tablet 500 mg PO BID Qty: 20 0RF doxycycline hyclate 100 mg tablet 100 mg PO BID Qty: 20 0RF No Action nitrofurantoin monohyd/m-cryst [Macrobid] 100 mg capsule 100 mg PO Q12H 5 Days Qty: 10 0RF Rx Instructions: must administer with a meal/food doxycycline hyclate 100 mg capsule 100 mg PO BID 14 Days Qty: 28 0RF metronidazole 500 mg tablet 500 mg PO BID 14 Days Qty: 28 0RF Print Language: Latvian
[2024-05-18 16:20] LABS: MANUAL DIFF FLAG NO
[2024-05-18 16:33] LABS: Eosinophils Absolute Auto 0.1 X10*3/uL (0.0-0.4); Eosinophils Percent Auto 1.5 % (0-4); Hematocrit 33.2 % (37.0-47.0); Hemoglobin 11.3 g/dl (12.0-16.0); Imm Gran Abs Auto 0.01 X10*3/uL (0.00-0.03); Imm Gran Pct Auto 0.1 % (0.0-0.4); Lymphocytes Absolute Auto 3.3 X10*3/uL (1.2-4.9); Lymphocytes Percent Auto 48.9 % (20-40); Mean Corpuscular Volume 85.1 fL (80.0-98.0); Mean Platelet Volume 9.9 fL (9.4-12.3); Monocytes Absolute Auto 0.5 X10*3/uL (0.1-1.2); Monocytes Percent Auto 6.9 % (2-11); Neutrophils Absolute Auto 2.9 x10*3/uL (2.0-8.3); Neutrophils Percent Auto 42.6 % (45-73); Platelet Count 180 X10*3/uL (160-400); Red Cell Distribution Width 13.7 % (11.0-16.0); White Blood Count 6.8 X10*3/uL (4.8-10.8)
[2024-05-18 16:43] LABS: Alanine Aminotransferase 19 U/L (0-31); Albumin Level 4.2 g/dL (3.5-5.0); Anion Gap 11 (12-20); Aspartate Amino Transferase 17 U/L (5-31); Blood Urea Nitrogen 17 mg/dL (9-16); Calcium 8.8 mg/dL (8.4-10.2); Carbon Dioxide 21 mmol/L (22-29); Chloride 107 mmol/L (96-108); Estimated Glomerular Filt Rate > 60; Glucose Random 85 mg/dL (60-115); Potassium 4.2 mmol/L (3.3-5.1); Sodium 135 mmol/L (135-145); Total Protein 7.3 g/dL (6.5-8.0)
[2024-05-18 16:47] LABS: Alkaline Phosphatase 49 U/L (39-117)
[2024-05-18 16:59] LABS: Appearance Urine Clear; Color Urine Yellow; Glucose Urine UA Negative (Negative); Leukocyte Esterase Urine Negative (Negative); Nitrite Urine Negative (Negative); Specific Gravity - Urine 1.015 (1.005-1.025); UMIC TRIGGER UACC YES; Urine Blood Trace (Negative); Urine Ketones Negative (Negative); Urine Protein Negative (Neg-Trace)
[2024-05-18 17:07] LABS: Bacteria Urine None Seen (None Seen); Hyaline Casts Urine 0-2 /LPF (0-2); RBC Urine 0-2 /HPF (0-2); Squamous Epithelial Cell Urine 0-2 /HPF (0-2); WBC Urine 0-5 /HPF (0-5)
[2024-05-18 17:56] LABS: Bilirubin Total 0.3 mg/dL (0.0-1.0)
[2024-05-18 22:27] LABS: UPreg QC Valid YES; Urine Pregnancy NEGATIVE (NEGATIVE)
[2024-05-18] MEDS: iohexoL 350 MG/ML 100 ML INFUS..BTL 85 ML IV (22:48)
[2024-05-18] MEDS: Doxycycline Hyclate 100 MG in 0.9 % Sodium Chloride 250 ML 166.67 MG IV (23:29)
[2024-05-18] MEDS: Morphine Sulfate 2 MG/ML CARTRIDGE 1 MG IVPUSH (23:30)
[2024-05-18] MEDS: cefTRIAXone sodium 1 GM VIAL IVPUSH (23:30)
[2024-05-18 23:37] VITALS: BP 106/59; PULSE 52; RESP 16; TEMP 37; O2SAT 100
[2024-05-18 23:40] LABS: Lactic Acid 0.7 mmol/L (0.5-2.0)
[2024-05-19] MEDS: metroNIDAZOLE/NS 500 MG/100 ML PIGGYBACK 100 MG IV (00:17)
[2024-05-19 01:28] VITALS: BP 102/76; PULSE 48; RESP 15; TEMP 36.9; O2SAT 100
[2024-05-19 02:24] VITALS: BP 102/76; PULSE 48; RESP 15; TEMP 36.9; O2SAT 100
[2024-05-19 11:51] LABS: Bacterial Vaginosis PCR POSITIVE (Negative); Candida Group PCR NOT DETECTED (Not Detect); Candida glab krusei PCR NOT DETECTED (Not Detect); Trichomonas vaginalis PCR NOT DETECTED (Not Detect)
[2024-05-19 12:23] LABS: CT PCR NOT DETECTED (Not Detect.); NG PCR NOT DETECTED (Not Detect.)
== END 2024-05-19 02:25 | disposition home or self-care (01) ==
PROVIDERS: Internal Medicine; Physician Assistant Medical; Emergency Provider Emergency Medicine; PCP Family Medicine
DX: R10.2 Pelvic and perineal pain (principal); N76.0 Acute vaginitis
CPT/HCPCS: 0352U; 36415; 74177; 80053; 81001; 81003; 81025; 83605; 85025; 87040; 87491; 87591; 96374; 96375; 99284; J0696; J1836; J2270; Q9967

== ENCOUNTER → 2024-05-18 22:13 | Outpatient (BNV) | payer MEDICAID, SELFPAY | PROVIDERS: Emergency Provider Emergency Medicine; PCP Family Medicine; Visit Provider Radiology Diagnostic Radiology | DX: R10.9 Unspecified abdominal pain (principal) | CPT/HCPCS: 74177 ==

== ENCOUNTER 2024-06-24 10:46 | Emergency (ER) | payer MEDICAID, OTHER, SELFPAY ==
[2024-06-24 10:54] VITALS: BP 100/58; PULSE 61; RESP 18; TEMP 36.9; O2SAT 100; BMI 22.3
--- OUTSIDE RECORDS SUMMARY | 2024-06-24 19:46 | XMS_ITS | Clinical Summary ---
Author Organization [facility] Address [address] [place] [address] Care Team Providers Care Secondary School Teacher Name Role Phone Margie Barrientos Primary Care Provider [phone] Allergies No known active allergies Medications melatonin 3 mg capsule Take 3 mg by mouth once daily as needed. 03/30/2024 5 Active FLUoxetine (PROzac) 20 mg capsule Take 40 mg by mouth daily. 03/30/2024 5 Active hydrOXYzine (VISTARIL) 25 mg capsule SMARTSI Capsule(s) By Mouth Every 6 Hours PRN Active Encounters Date Type Department Care Team Description 06/03/2024 Telephone [facility] Obstetrics and Gynecology [address] [place] [address] Treating Plant Supervisor: Quin Lerner MD MPH 05/31/2024 Telephone [facility] Obstetrics and Gynecology [address] [place] [address] Treating Plant Supervisor: Quin Lerner MD MPH 05/30/2024 Telephone [facility] Obstetrics and Gynecology [address] [place] [address] Treating Plant Supervisor: Quin Lerner MD MPH Results 05/21/2024 Telephone [facility] Obstetrics and Gynecology [address] [place] [address] Treating Plant Supervisor: Lesvia Fernandez RN 05/17/2024 Telephone [facility] Obstetrics and Gynecology [address] [place] [address] Treating Plant Supervisor: Quin Lerner MD MPH 05/07/2024 11:30 AM EST Procedure visit [facility] Obstetrics and Gynecology [address] [place] [address] Treating Plant Supervisor: Quin Lerner MD MPH SAMUEL III (cervical intraepithelial neoplasia III) (Primary Dx); HGSIL (high grade squamous intraepithelial lesion) on Pap smear of cervix 04/12/2024 Telephone [facility] Obstetrics and Gynecology [address] [place] [address] Treating Plant Supervisor: Quin Lerner MD MPH PAC Appt Request - Established 04/01/2024 3:30 PM EST Procedure visit [facility] Obstetrics and Gynecology [address] [place] [address] Treating Plant Supervisor: Quin Lerner, MPH HGSIL on Pap smear of cervix (Primary Dx) from Last 3 Months Social History Tobacco Use Types Packs/Day Years Used Date Smoking Tobacco: Never Smokeless Tobacco: Never Tobacco Cessation:Counseling Given: Not Answered Comments No Sex and Gender Information Value Date Recorded Sex Assigned at Female 03/28/2024 2:18 PM EST Legal Sex Female 2:06 PM EDT Gender Identity Female 03/28/2024 2:18 PM EST Sexual Orientation Straight 03/28/2024 2: 18 PM EST Last Filed Vital Signs Vital Sign Reading Time Taken Comments Blood Pressure 108/62 05/07/2024 11:24 AM EST Pulse - - Temperature - - Respiratory Rate - - Oxygen Saturation - - Inhaled Oxygen Concentration - - Weight 62.6 kg (138 lb) 05/07/2024 11:24 AM EST Height - - Body Mass Index - - Plan of Treatment Upcoming Encounters Date Type Department Care Team (Late st Contact Info) Description 12/02/2024 3:30 PM EDT Procedure visit [facility] Obstetrics and Gynecology [address] [place] [address] Treating Plant Supervisor: Quin Lerner MD MPH [address] [place] [address] Health Maintenance Due Date Last Done Comments Pap Smear 1995 DTaP,Tdap,and Td Vaccines (1 - Tdap) 12/22/2017 Varicella Vaccines (2 of 2 - 13+ 2-dose series) 02/08/2024 01/11/2024 Alcohol/Substance Use Screening 05/22/2024 Depression Screening and Follow-Up 05/22/2024 Social Drivers of Health Annual Screening 05/22/2024 Hepatitis B Vaccines (3 of 3 - 19+ 3-dose series) 07/06/2024 02/13/2024, 01/04/2024 RSV Vaccine (60+ years old and patients) (1 - 1-dose 75+ series) 12/22/2070 Hepatitis C Screening Completed 01/02/2024 COVID-19 Vaccine Completed 02/13/2024 HIV Screening Completed 03/25/2024, 01/02/2024 Influenza Vaccine Completed 04/12/2024 Pneumococcal Vaccine: Pediatric (0-5 Years) and At-Risk Patients (6-64 Years) Aged Out No longer eligible based on patient's age to complete this topic Procedures * Due to [place] [employer] law, this organization might not be sharing negative HIV tests. Procedure Name Priority Date/Time Associated Diagnosis Comments TISSUE EXAM Routine 05/07/2024 12:19 PM EST SAMUEL III (cervical intraepithelial neoplasia III) POCT HCG, URINE Routine 05/07/2024 11:39 AM EST SAMUEL III (cervical intraepithelial neoplasia III) TISSUE EXAM Routine 04/01/2024 4:27 PM EST HGSIL on Pap smear of cervix POCT HCG, URINE Routine 04/01/2024 4:27 PM EST HGSIL on Pap smear of cervix from Last 3 Months Results * Due to [place] [employer] law, this organization might not be sharing negative HIV tests. * (ABNORMAL) Tissue Exam (05/07/2024 12:19 PM EST) Only the most recent of2 resultswithin the time period is included. Final Diagnosis Specimen #1 - Cervix, LEEP: - Transformation zone with focal High-Grade Squamous Intraepithelial Lesion (HSIL/SAMUEL-2) and prior procedural changes, extending to the ectocervical margin. Note: Multiple levels were examined. P16 shows block-like staining and KI67 shows increased proliferation index, supporting the above diagnosis. Specimen #2 - Endocervical Curettings: - Fragments of unremarkable endocervical and squamous epithelium. - Fragments of proliferative endometrium. [facility] MANUAL 05/10/2024 9:28 AM [facility]OR[facility] Clinical History SAMUEL III [facility] MANUAL 05/10/2024 9:28 AM [facility]ATOM[facility] PATHOLOG[facility] LABORAT[facility] Gross Description 1. Endocervix, leep/cone at 6oclock Received in formalin, labeled with the patient's name, date of , medical record number, and LEEP/Cone at 6:00 , is a ramos-pink to red soft tissue fragment (3.2 x 2.2 x 2.4 cm), received previously incised at 6:00. The identifiable mucosa is ramos-pink to red and multifocally granular. The endocervical margin is inked green, and the ectocervical margin is inked black, and the specimen is serially sections. Also received the same container are multiple red-pink soft tissue fragments, admixed with mucus (2.0 x 1.2 x 0.1 cm in aggregate). The specimen is entirely submitted as follows: 1A-1B-12:00 to 3:00 1C-3:00 to 6:00 1D-1E-6:00 to 9:00 1F-1G-9:00 to 12:00 1H-additionally received soft tissue fragments, admixed with mucus 2. Endocervix Received in formalin, labeled with the patient's name, date of , medical record number, and ECC , are multiple pink-red soft tissue fragments, admixed with mucus (1.2 x 1.2 x 0.2 cm in aggregate). The specimen is entirely submitted in cassette 2A. [facility] MANUAL 05/10/2024 9:28 AM [facility] Gross Description User Grossing complete by Lucero Arroyo on 05/07/2024 2:37 PM [facility] MANUAL 05/10/2024 9:28 [facility][NOTE 3] ANATOMIC PATHOLOGY [facility] Best Block for Ancillary Studies 1A [facility] MANUAL 05/10/2024 9:28 [facility] Embedded Images [facility] 05/10/2024 9:28 [facility] Disclaimer Some of these tests were developed and their performance characteristics determined by the Immunoperoxidase/ Histology Laboratory of [facility]. They have not been cleared or approved by the U.S. Food and Drug Administration. The FDA has determined that such clearance or approval is not necessary. This test is used for clinical purposes. It should not be regarded as investigational or for research. This laboratory is certified under the Clinical Laboratory Improvement Amendments of 1988 (CLIA-88) as qualified to perform high complexity clinical laboratory testing. [facility] 05/10/2024 9:28 [facility] Resulting Agency Case was signed out at [facility], Department of Pathology, [facility] CLIA [id number] [facility] 05/10/2024 9:28 [facility] Abnormal Yes(A) (none) [facility] 05/10/2024 9:28 [facility] Report Header Surgical Pathology Report ? Case: [id number] ? Authorizing Provider: ??Quin Cazares MD MPH ?Collected: ? 05/07/2024 1219 ? Ordering Location: ? [facility] ? Received: ?05/07/2024 1354 ? [place]- [facility] ? Obstetrics and Gynecology ? Pathologist: ? Rosa Nova MD ? Specimens: ?? 1) - Endocervix, leep/cone at [address] [place] [address] ? 2) - Endocervix, ECC ? 05/10/2024 9:28 AM EST [facility] Tissue Endocervical structure / Unknown Non-Blood Collection / Unknown 05/07/2024 12:19 PM EST 05/07/2024 1:54 PM EST Tissue specimen (specimen) Endocervical structure / Unknown 05/07/2024 12:19 PM EST 05/07/2024 1:54 PM EST us Quin Cazares MD MPH LAB PATHOLOGY/CYTOLOGY [facility] BENNETT Final Result [facility] [address] [place] [address], [facility] LAB[facility] [address] [place] [address], * POCT HCG, Urine, non-interfaced (05/07/2024 11:39 AM EST) Only the most recent of2 resultswithin the time period is included. Control band present? Yes Background Clear? Yes Preg Test, Ur Negative Negative Urine 05/07/2024 11:3 9 AM EST us Quin Cazares MD MPH POINT OF CARE TEST ORDERABL ES Final Result from Last 3 Months Insurance HSNO/FREE CARE [facility] Care Teams Secondary School Teacher Relationship Specialty Start Date End Date Margie Barrientos [address] [place] [address] PCP - General Family Medicine 03/20/24
--- OUTSIDE RECORDS SUMMARY | 2024-06-24 19:46 | XMS_ITS | Encounter Summary ---
Author Organization [employer] Address [address] [place] [address] Care Team Providers Care Blocker And Cutter Contact Lens Name Role Phone Margie Barrientos DO Primary Care Provider [phone] Encounter Details Date Type Department Care Team (Late st Contact Info) Description 04/23/2024 Orders Only [facility] External Provider, [facility] Social History Tobacco Use Types Packs/Day Years Used Date Smoking Tobacco: Former Cigarettes Smokeless Tobacco: Never Alcohol Use Standard Drinks/Week Comments Never 0 (1 standard drink = 0.6 oz pur e alcohol) Depression Answer Date Recorded Patient Health Questionnaire-9 Score 12 02/13/2024 Patient Health Questionnaire-9 Score 12 02/13/2024 Last PHQ-9: Questionnaire Data Not on file 0 02/13/2024 Housing Stability Answer Date Recorded What is your housing situation today? I do not have housing (Staying with others, in a hotel, in a nursing home, living outside on the street, on a beach, in a car, or in a park 12/20/[address] you li ve. Do you have problems with any of the following? None of the above 12/20/2023 Food Insecurity Answer Date Recorded Within the past 12 months, y ou worried that your food would run out before you got money to buy more: Sometimes True 2023 Within the past 12 months,th e food you bought just didn't last and you didn't have enough money to get more: Sometimes True 12/20/2023 Transportation Answer Date Recorded In the past 12 months, has l ack of transportation kept you from medical appts, meetings, work or from getting things needed for daily living? No 12/20/2023 Utilities Answer Date Recorded In the past 12 months, has t he electric, gas, oil or water company threatened to shut off services in your home? No 12/20/2023 Depression Answer Date Recorded Patient Health Questionnaire-2 Score 4 02/13/2024 Internet Access Answer Date Recorded Internet Access Q1 Yes 01/19/2024 Internet Access Q2 Not on file 01/19/2024 Comments No Sex and Gender Information Value Date Recorded Sex Assigned at Unknown 01/01/2024 8:37 AM EDT Legal Sex Female 1:11 PM EDT Gender Identity Other 01/01/2024 8:37 AM EDT Sexual Orientation Don't know 01/01/2024 8: 38 AM EDT documented as of this encounter Plan of Treatment Not on file documented as of this encounter Procedures Procedure Name Priority Date/Time Associated Diagnosis Comments US PELVIS TRANSVAGINAL Routine 04/23/2024 3:15 PM EST documented in this encounter Results * US Pelvis Transvaginal (04/23/2024 3:15 PM EST) Anatomical Region Laterality Modality Pelvis Ultrasound 04/23/2024 3:15 PM EST Narrative 06/09/2024 11:56 AM EST ? [facility] ?[address] ?[place] [address] ? Ultrasound Report ? Signed ? Patient: Elizabet Faulkner ?MR#: [id number] ?? [id number] ? : 1995 ?Acct:[id number] ? Age/Sex: 28 / F ?ADM Date: 04/23/24 ? Loc: HO.US ? Attending Dr: Marige Barrientos DO ? Ordering Physician: Juan Burleson MD ?? Date of Service: 04/23/24 ?? Procedure(s): US pelvic and transvaginal ?? Accession Number(s): [id number] ? cc: Margie Barrientos DO; Juan Burleson MD ? EXAMINATION: ? US PELVIS ? CLINICAL INFORMATION: ? Abnormal ultrasound of endometrium, currently menstruating, started ?? 04/21/2024. Patient denies pain. ? COMPARISON: ?? Ultrasound pelvis of 01/19/2024. ? TECHNIQUE: ?? Ultrasound of the pelvis is performed using both transabdominal and ?? transvaginal transducers along with Doppler. Transvaginal imaging is ?? performed due to inadequate visualization transabdominally. ? FINDINGS: ?? The anteverted uterus appears slightly retroflexed and measures 7.9 x ?? 3.2 x 4.1 cm. ? Nabothian cysts in the cervix. ? Right ovary measures 3.2 x 1.5 x 2.0 cm, volume 5.0 mL. ? Left ovary measures 3.2 x 1.7 x 2.3 cm, volume 6.7 mL. Bilateral ?? ovaries are unremarkable. ? Endometrial thickness is 7 mm. Endometrium is mildly heterogeneous with ?? small cystic spaces. ? No significant free fluid. ? US/US pelvic and transvaginal ?? IMPRESSION: ?? Endometrial thickness is 7 mm. Endometrium is mildly heterogeneous with ?? small cystic spaces. ?? Gynecologic consultation and correlation with clinical exam recommended ?? to determine further management. ? Electronically signed by: ??Chrissy Martínez MD ??06/09/2024 11:53 AM EST ? Dictated By: ?Chrissy Martínez MD ? Signed By: ?<Electronically signed by Chrissy Martínez MD in OV> ? 06/09/24 1153 ? DD/ 1515 ? TD/TT: 04/23/24 1534 ? System Safety Engineer: ? Procedure Note Kenan, Image - 06/09/2024 [place] [address] Ultrasound Report Signed Patient: Fanny Faulkner#: [id number] : 1995Acct:[id number] Age/Sex: 28 / FADM Date: 04/23/24 Loc: HO.US Attending Dr: Margie Barrientos DO Ordering Physician: Juan Burleson MD Date of Service: 04/23/24 Procedure(s): US pelvic and transvaginal Accession Number(s): [id number] cc: Margie Barrientos DO; Juan Burleson MD EXAMINATION: US PELVIS CLINICAL INFORMATION: Abnormal ultrasound of endometrium, currently menstruating, started 04/21/2024. Patient denies pain. COMPARISON: Ultrasound pelvis of 01/19/2024. TECHNIQUE: Ultrasound of the pelvis is performed using both transabdominal and transvaginal transducers along with Doppler. Transvaginal imaging is performed due to inadequate visualization transabdominally. FINDINGS: The anteverted uterus appears slightly retroflexed and measures 7.9 x 3.2 x 4.1 cm. Nabothian cysts in the cervix. Right ovary measures 3.2 x 1.5 x 2.0 cm, volume 5.0 mL. Left ovary measures 3.2 x 1.7 x 2.3 cm, volume 6.7 mL. Bilateral ovaries are unremarkable. Endometrial thickness is 7 mm. Endometrium is mildly heterogeneous with small cystic spaces. No significant free fluid. US/US pelvic and transvaginal IMPRESSION: Endometrial thickness is 7 mm. Endometrium is mildly heterogeneous with small cystic spaces. Gynecologic consultation and correlation with clinical exam recommended to determine further management. Electronically signed by: Chrissy Martínez MD 06/09/2024 11:53 AM [facility] Dictated By: Chrissy Martínez MD Signed By: <Electronically signed by Chrissy Martínez MD in OV> 06/09/24 1153 DD/ 1515 TD/TT: 04/23/24 1534 System Safety Engineer: [facility] External Provider IMG US PROCEDURES Edited Result - Final documented in this encounter Visit Diagnoses Not on filedocumented in this encounter Additional Health Concerns Assessment Noted Time PHQ-9 Depression Total Score: 12 02/12/ 024 11:16 AM EDT documented as of this encounter Care Teams Blocker And Cutter Contact Lens Relationship Specialty Start Date End Date Margie Barrientos DO [address] [place] [id number] PCP - General Family Medicine 01/02/24 documented as of this encounter
--- OUTSIDE RECORDS SUMMARY | 2024-06-24 19:46 | XMS_ITS | Clinical Summary ---
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 triamcinolone (Kenalog) 0.1 % ointment Apply topically if needed in the morning and at bedtime for rash. 30 g 1 4 Active norelgestromin- ethinyl estradiol (Xulane) 150-35 MCG/24HR Apply 1 patch each week for 3 weeks, then have no patch for 1 week. Repeat 3 patch 3 4 Active hydrOXYzine pamoate (Vistaril) 25 MG capsule TAKE 1 CAPSULE BY MOUTH EVERY 6 HOURS IF NEEDED FOR ANXIETY 30 capsule 2 4 Active FLUoxetine (PROzac) 20 MG capsule Take 3 capsules (60 mg) by mouth Once per day. 90 capsule 2 4 04/12/20 25 Active melatonin 5 MG tablet Take 1-2 tablets (5-10 mg) by mouth if needed at bedtime (insomnia). 60 tablet 2 4 04/12/20 25 Active traZODone (Desyrel) 50 MG tablet Take 1-2 tablets (50-100 mg) by mouth at bedtime. 60 tablet 2 4 04/12/20 25 Active permethrin (Elimite) 5 % cream apply to skin from hairline to toes and wash off 8-10 hours later 120 g 4 Active cetirizine (ZyrTEC) 10 MG tablet Take 1 tablet (10 mg) by mouth Once per day. 90 tablet 3 4 05/10/20 25 Active docusate sodium (Colace) 100 MG capsule Take 1 capsule (100 mg) by mouth 2 times daily. 180 capsule 3 4 05/10/20 25 Active polycarbophil (FiberCon) 625 MG tablet Take 1 tablet (625 mg) by mouth Once per day. 90 tablet 3 4 05/10/20 25 Active polyethylene glycol, PEG, 3350 (MiraLax) 17 GM/SCOOP powder Take 17 g by mouth if needed each day (constipation). 527 g 2 4 05/10/20 25 Active hydrocortisone (Anusol-HC) 2.5 % rectal cream Insert into the rectum if needed in the morning and at bedtime for hemorrhoids. 28 g 1 4 Active witch zach-glycerin (Tucks) pad Apply topically if needed for irritation or hemorrhoids. 100 each 3 Active Active Problems Problem Noted Date Diagnosed Date Major depression, recurrent, chronic 01/02/2024 Anxiety 01/02/2024 Bulimia 01/02/2024 Resolved Problems Problem Noted Date Diagnosed Date Resolved Date Adjustment disorder with anxious mood 01/02/2024 01/08/2024 Encounters * This document contains information received from the source organization and may not represent a complete record from that organization. Date Type Department Care Team Description 06/17/2024 Telephone [facility] [address] [place] [address] [phone] Elsa Cifuentes, RN NTTS 05/31/2024 Telephone [facility] [address] [place] [address] [phone] Margie Barrientos DO Telephone Call 05/28/2024 Orders Only [facility] [address] [place] [phone] Provider, MD Rashid 05/21/2024 Telephone [facility] [address] [place] [phone] Margie Barrientos DO Nurse Triage 05/21/2024 Refill [facility] [address] [place] [address] [phone] Ayala Day CNM 05/18/2024 Orders Only GENERIC EXTERNAL DATA DEPARTMENT Provider, Generic External Data 05/10/2024 11:00 AM EST Office Visit [facility] [place] [address] Margie Barrientos DO Major depression, recurrent, chronic (CMS/HCC) (Primary Dx); Abnormal uterine bleeding (AUB); H/O syphilis; SAMUEL III (cervical intraepithelial neoplasia III); Rash; Other constipation; Other hemorrhoids; Need for vaccination 05/10/2024 Travel 05/03/2024 Telephone [facility] [place] [address] Margie Barrientos DO callback requested 05/01/2024 Patient Outreach [facility] [place] [address] Margie Barrientos DO Pre-visit Planning (SDOH screening completed on 12/20/2023) 04/30/2024 Refill [facility] [place] [address] Margie Barrientos DO 04/26/2024 Refill [facility] [place] [address] Margie Barrientos DO 04/23/2024 Orders Only [facility] External Provider, [facility] 04/16/2024 Telephone [facility] [place] [address] Margie Barrientos DO Medication Question 04/15/2024 Refill [facility] [place] [address] Elsa Cifuentes RN 04/15/2024 Orders Only [facility] [place] [address] Provider, MD Rashid 04/12/2024 11:45 AM EST Office Visit [facility] [place] [address] Margie Barrientos DO Major depression, recurrent, chronic (CMS/HCC) (Primary Dx); Abnormal uterine bleeding (AUB); H/O syphilis; SAMUEL III (cervical intraepithelial neoplasia III); Encounter for immunization 04/12/2024 Refill [facility] [place] [address] Margie Barrientos DO 04/12/2024 Travel 04/11/2024 Refill [facility] [address] [address] Vlad Casanova MD ROMIE (generalized anxiety disorder) 04/11/2024 Refill [facility] [address] [place] [phone] Margie Barrientos DO ROMIE (generalized anxiety disorder) 03/31/2024 Orders Only [facility] [address] [place] [phone] Margie Barrientos DO Positive RPR test (Primary Dx) 03/30/2024 11:00 AM EST Office Visit [facility] [address] [address] Vlad Casanova MD ROMIE (generalized anxiety disorder) (Primary Dx); Insomnia, unspecified type 03/29/2024 Telephone [facility] [address] [place] [phone] Margie Barrientos DO Medication Question 03/27/2024 Telephone [facility] [address] [place] [phone] Blanche Easton, RN Results 03/25/2024 Orders Only [address] [address] Ayala Day CNM from Last 3 Months Immunizations Name Administration Dates Next Due Hep B, adult 02/13/2024,01/04/2024 Influenza, seasonal, injectable, preservative fr ee 04/12/2024 MMR 05/10/2024,01/11/2024 Pfizer Covid-19 Vaccine 12+ 02/13/2024 Varicella 05/10/2024,01/11/2024 Family History Medical History Relation Name Comments Asthma Brother 1 Autism Brother 1 Autism Brother 2 Kidney cancer Maternal Grandmother Breast cancer Maternal Great-Grandmother Depression Mother Hearing loss Mother Relation Name Status Comments Brother 1 Brother 2 Alive Maternal Grandmother Maternal Great-Grandmother Alive Mother Social History Tobacco Use Types Packs/Day Years Used Date Smoking Tobacco: Former Cigarettes Smokeless Tobacco: Never Tobacco Cessation:Counseling Given: Not Answered Alcohol Use Standard Drinks/Week Comments Never 0 [...] with others, in a hotel, in a group home, living outside on the street, on [...] Don't know 01/01/2024 8: 38 AM EDT Last Filed Vital Signs Vital Sign Reading Time Taken Comments Blood Pressure 100/60 05/10/2024 11:24 AM EST Pulse 82 05/10/2024 11:24 AM EST Temperature 37.1 ??C (98.7 ??F) 05/10/2024 11:[address] Respiratory Rate 19 05/10/2024 11:24 AM EST Oxygen Saturation 100% 04/12/2024 11:53 AM EST Inhaled Oxygen Concentration - - Weight 64.9 kg (143 lb) 05/10/2024 11:24 AM EST Height 172.7 cm (5' 8 ) 05/10/2024 11:24 AM EST Body Mass Index 21.74 05/10/2024 11:24 AM EST Plan of Treatment Health Maintenance Due Date Last Done Comments DTaP/Tdap/Td Vaccines (1 - Tdap) 12/22/2014 Hepatitis B Vaccines (3 of 3 - 19+ 3-dose series) 07/06/2024 02/13/2024, 01/04/2024 Depression Monitoring (PHQ-9) 08/12/2024, 02/13/2024 Colposcopy 11/05/2024 05/07/2024, 04/01/2024 SDOH Screening 12/19/2024 12/20/2023 Depression Screening 02/12/2025 02/13/2024, 02/13/2024 Family Planning (PISQ) 03/05/2025 03/05/2024 Alcohol/Substance Use Screening 05/10/2025 05/10/2024 Tobacco Screening 05/10/2025 05/10/2024 Pap Smear 03/05/2027 03/05/2024 Zoster Vaccines (1 of 2) 12/22/2045 RSV Patients and Patients Aged 60 years or older (1 - 1-dose 75+ series) 12/22/2070 Hepatitis C Screening Completed 01/02/2024 COVID-19 Vaccine Completed 02/13/2024 HIV Screening Completed 03/25/2024, 01/02/2024 Influenza Vaccine Completed 04/12/2024 HIB Vaccines Aged Out No longer eligi ble based on patient's age to complete this topic HPV Vaccines Aged Out No longer eligi ble based on patient's age to complete this topic Hepatitis A Vaccines Aged Out No long er eligible based on patient's age to complete this topic IPV Vaccines Aged Out No longer eligi ble based on patient's age to complete this topic Meningococcal Vaccine Aged Out No kaitlyn alcides eligible based on patient's age to complete this topic Pneumococcal Vaccine: Pediatrics (0 to 5 Years) and At-Risk Patients (6 to 49) Years) Aged Out No longer eligible b ased on patient's age to complete this topic RSV under 20 months Aged Out No longe r eligible based on patient's age to complete this topic Rotavirus Vaccines Aged Out No longer eligible based on patient's age to complete this topic Procedures Procedure Name Priority Date/Time Associated Diagnosis Comments CT ABDOMEN PELVIS W CONTRAST Routine 05/18/2024 11:54 PM EST LACTIC ACID Routine 05/18/2024 11:21 PM EST BLOOD CULTURE (SECOND) Routine 11:18 PM EST BLOOD CULTURE (FIRST) Routine 05/18/2024 11:18 PM EST CHLAMYDIA/N. GONORRHOEAE RNA, TMA, UROGENITAL Routine 05/18/2024 10:27 PM EST BACTERIAL VAGINOSIS PANEL Routine 05/18/2024 10:27 PM EST WET PREP, GENITAL Routine 05/18/2024 10: 27 PM EST HCG, QL, URINE Routine 05/18/2024 4:15 PM EST URINALYSIS, COMPLETE, WITH REFLEX TO CULTURE Routine 05/18/2024 4:15 PM EST COMPREHENSIVE METABOLIC PANEL Routine 05/18/2024 4:15 PM EST CBC WITH AUTO DIFFERENTIAL Routine 05/18/2024 4:15 PM EST BIOPSY CERVIX Routine 05/07/2024 8:49 AM EST US PELVIS TRANSVAGINAL Routine 3:15 PM EST POCT , URINE Routine 04/12/2024 4:32 PM EST Abnormal uterine bleeding (AUB) CHLAMYDIA/N. GONORRHOEAE RNA, TMA, UROGENITAL Routine 04/12/2024 12:34 PM EST Abnormal uterine bleeding (AUB) BACTERIAL VAGINOSIS PANEL Routine 04/12/2024 12:34 PM EST Abnormal uterine bleeding (AUB) CONFIRMATORY SYPHILIS PROFILE Routine 04/03/2024 2:24 PM EST Positive RPR test RPR (MONITOR) W/REFL TITER Routine 04/03/2024 2:24 PM EST Positive RPR test COLPOSCOPY Routine 04/01/2024 8:00 AM EST HCV RNA BY PCR, QN RFX PARAG Routine 03/25/2024 3:51 PM EST RPR (MONITOR) W/REFL TITER Routine 03/25/2024 3:51 PM EST Screening examination for venereal disease HIV 1/2 ANTIGEN/ANTIBODY, FOURTH GENERATION W/RFL Routine 03/25/2024 3:51 PM EST Screening examination for venereal disease THINPREP IMAGING SYSTEM PAP Routine 03/05/2024 4:00 PM EDT Routine cervical smear HEPATITIS C AB W/REFL TO HCV RNA, QN, PCR Routine 01/02/2024 11:40 AM EDT Routine history and physical examination of adult from Last 3 Months or Most Recently Relevant to Health Maintenance Results * CT Abdomen Pelvis w/ Contrast (05/18/2024 11:54 PM EST) Anatomical Region Laterality Modality Body, Pelvis, Abdomen Computed T omography 05/18/2024 11:5 4 PM EST Narrative 05/18/2024 11:57 PM EST ? [facility] ?[address] ?[place] [address] ? CT Scan Report ? Signed ? Patient: Zhong Bridges,Elizabet ?MR#: [id number] ?? [id number] ? : 1995 ?Acct:[id number] ? Age/Sex: 28 / F ?ADM Date: 12/28/24 ? Loc: HO.ED ? Attending Dr: ? Ordering Physician: Jessica Blackwell MD ?? Date of Service: 05/18/24 ?? Procedure(s): CT abdomen pelvis w IV con ?? Accession Number(s): [id number] ? cc: Margie Barrientos DO; Jessica Blackwell MD ? Report Number: ?? [id number]: Total DLP = ??406.00 mGy-cm ? CLINICAL HISTORY: abd pain s p procedure, r o tubo-ovarian abscess ? CT Abdomen and Pelvis W Contrast ? COMPARISON: None ? FINDINGS: ?? Normal liver. ?? Normal spleen. ?? Normal kidneys. ?? Normal adrenal glands. ?? Normal pancreas. ?? No visible cholelithiasis. No CT evidence of acute cholecystitis. No ?? biliary dilation. ? No evidence of bowel obstruction or colitis. ?? Normal appendix. ?? Unremarkable bladder. ?? Unremarkable uterus and ovaries. ?? No ascites. No pneumoperitoneum. ?? No lymphadenopathy. ?? No acute fracture. ?? No abdominal aortic aneurysm. ? IMPRESSION: ?? No acute findings. ? This document has been electronically signed by: Santos Barros MD on ?? 05/18/2024 23:54:57 ? Dictated By: ?Santos Barros MD ? Signed By: ?<Electronically signed by Santos Barros MD in OV> ?05/18/24 2356 ? DD/ 2354 ? TD/TT: 05/18/24 2354 ? Ground Hand: ? Procedure Note Kenan, Image - 05/19/[address] [place] [id number] [address] Scan Report Signed Patient: Fanny Faulkner#: [id number] : 1995Acct:[id number] Age/Sex: 28 / FADM Date: 05/18/24 Loc: HO.ED Attending Dr: Ordering Physician: Jessica Blackwell MD Date of Service: 05/18/24 Procedure(s): CT abdomen pelvis w IV con Accession Number(s): [id number] cc: Margie Barrientos DO; Jessica Blackwell MD Report Number: [id number]: Total DLP = 406.00 mGy-cm CLINICAL HISTORY: abd pain s p procedure, r o tubo-ovarian abscess CT Abdomen and Pelvis W Contrast COMPARISON: None FINDINGS: Normal liver. Normal spleen. Normal kidneys. Normal adrenal glands. Normal pancreas. No visible cholelithiasis. No CT evidence of acute cholecystitis. No biliary dilation. No evidence of bowel obstruction or colitis. Normal appendix. Unremarkable bladder. Unremarkable uterus and ovaries. No ascites. No pneumoperitoneum. No lymphadenopathy. No acute fracture. No abdominal aortic aneurysm. IMPRESSION: No acute findings. This document has been electronically signed by: Santos Barros MD on 05/18/2024 23:54:57 Dictated By: Santos Barros MD Signed By: <Electronically signed by Santos Barros MD in OV> 05/18/242355 DD/ 53 TD/TT: 05/18/242353 Ground Hand: [facility] External Provider IMG CT PROCEDURES Edited Result - Final * Lactic Acid (05/18/2024 11:21 PM EST) Lactic Acid 0.7 0.5 - 2.0 mmol/L [facility] 05/18/2024 11:2 1 PM EST 05/18/2024 11:26 PM EST Generic External Data Provider LAB BLOOD ORDERAB LES Final Result Performing Organization Address [facility] Co de Phone Number [facility] [address] [place] [phone] * Blood Culture (First) (05/18/2024 11:18 PM EST) Blood Venous blood specimen / Unknown 05/18/2024 11:18 PM EST 05/18/2024 11:38 PM EST Comment:Blood Narrative [facility] - 05/24/2024 1:38 AM EST Blood Culture (First) No growth after 5 days. Specimen Source: Blood Generic External Data Provider LAB MICROBIOLOGY - GENERAL ORDERABLES Final Result Performing Organization Address [facility] Co de Phone Number [facility] [address] [place] [phone] * Blood Culture (Second) (05/18/2024 11:18 PM EST) Blood Venous blood specimen / Unknown 05/18/2024 11:18 PM EST 05/18/2024 11:38 PM EST Comment:Blood Narrative [facility] - 05/24/2024 1:38 AM EST Blood Culture (Second) No growth after 5 days. Specimen Source: Blood Generic External Data Provider LAB MICROBIOLOGY - GENERAL ORDERABLES Final Result Performing Organization Address [facility] Co de Phone Number [facility] [address] [place] [address] [phone] * (ABNORMAL) Bacterial Vaginosis (05/18/2024 10:27 PM EST) Only the most recent of2 resultswithin the time period is included. TRICHOMONAS VAGINALIS DETECTION BY PCR NOT DETECTED Not Detect [facility] BACTERIAL VAGINOSIS DETECTION BY PCR POSITIVE(A) Negative [facility] Comment:The BV organism targ ets of the Xpert Xpress MVP test can becommensal in women; Xpert Xpress MVP positive results forbacterial vaginosis should be considered in conjunction withother clinical and patient information to determine thedisease status. Organisms that are not detected by the XpertXpress MVP test have also been reported to be associatedwith BV and aerobic vaginitis.The Xpert Xpress MVP test performance has not been evaluatedin patients under the age of 14. SHIRA GROUP DETECTION BY PCR NOT DETECTED Not Detect [facility] Shira glab krusei PCR NOT DETECTED Not Detect [facility] 05/18/2024 10:2 7 PM EST 05/18/2024 10:34 PM EST Generic External Data Provider LAB MICROBIOLOGY - GENERAL ORDERABLES Final Result Performing Organization Address [facility]/ZIP Co de Phone Number [facility] [address] [place] [phone] * Chlamydia/N. Gonorrhoeae RNA, TMA, Urogenitial (05/18/2024 10:27 PM EST) Only the most recent of2 resultswithin the time period is included. CT PCR NOT DETECTED Not Detect. [facility] Comment:A not detected test result does not exclude the possibilityof infection because test results can be affected byimproper specimen collection, concurrent antibiotic therapy,or the number of organisms in the specimen which may bebelow the sensitivity of the test. As with many diagnostictests, results from the Xpert CT/NG assay should beinterpreted in conjunction with other laboratory andclinical data available to the clinician.Xpert CT/NG performance has not been evaluated in patientsless than 14 years of age. The assay should not be used forthe evaluationof suspected sexual abuse or for other medico-legalindications. Additional testing is recommended in anycircumstance when false positive or false negative resultscould lead to adverse medical, social or psychologicalconsequences. NG PCR NOT DETECTED Not Detect. [facility] Comment:A not detected test result does not exclude the possibilityof infection because test results can be affected byimproper specimen collection, concurrent antibiotic therapy,or the number of organisms in the specimen which may bebelow the sensitivity of the test. As with many diagnostictests, results from the Xpert CT/NG assay should beinterpreted in conjunction with other laboratory andclinical data available to the clinician.Xpert CT/NG performance has not been evaluated in patientsless than 14 years of age. The assay should not be used forthe evaluationof suspected sexual abuse or for other medico-legalindications. Additional testing is recommended in anycircumstance when false positive or false negative resultscould lead to adverse medical, social or psychologicalconsequences. 05/18/2024 10:2 7 PM EST 05/18/2024 10:34 PM EST Narrative [facility] - 05/19/2024 12:23 PM EST Vaginal us Generic External Data Provider LAB MICROBIOLOGY - GENERAL ORDERABLES Final Result [facility] [address] [place] [phone] * Wet prep, genital (05/18/2024 10:27 PM EST) Vaginal Fluid Vaginal structure / Unknown 05/18/2024 10:27 PM EST 05/18/2024 10:34 PM EST Comment:Vaginal Narrative [facility] - 05/18/2024 10:48 PM EST Trichomonas Prep Direct Microscopic Exam Trichomonas Prep No trichomonads or yeast seen Specimen Source: Vaginal us Generic External Data Provider LAB MICROBIOLOGY - GENERAL ORDERABLES Final Result [facility] [address] [place] [phone] * (ABNORMAL) Urinalysis, Complete, with Reflex to Culture (05/18/2024 4:15 PM EST) Color Urine Yellow [facility] Appearance Urine Clear [facility] PH 6.0 5.0 - 9.0 [facility] Glucose Urine UA Negative Negative mg/dL [facility] Urine Blood Trace(A) Negative [facility] Specific [place] - Urine 1.015 1.005 - 1.025 [facility] Urine Protein Negative Neg-Trace mg/dL [facility] Urine Ketones Negative Negative mg/dL [facility] Nitrite Urine Negative Negative [facility] Leukocyte Esterase Urine Negative Negative [facility] RBC Urine 0-2 0 - 2 /HPF [facility] Urine WBC 0-5 0 - 5 /HPF [facility] Urine Squamous Epithelial Cell 0-2 0 - 2 /HPF [facility] Urine Bacteria None Seen None Seen [facility] Hyaline Casts, Urine 0-2 0 - 2 /LPF [facility] 05/18/2024 4:15 PM EST 05/18/2024 4:18 PM EST Narrative [facility] - 05/18/2024 5:22 PM EST Urine, Clean Catch us Generic External Data Provider LAB URINE ORDERAB LES Final Result [facility] [address] [place] [phone] * (ABNORMAL) CBC auto differential (05/18/2024 4:15 PM EST) White Blood Count 6.8 4.8 - 10.8 X10*3/uL [facility] Red Blood Count 3.90(L) 4.20 - 5.50 X10*6/uL [facility] Hemoglobin 11.3(L) 12.0 - 16.0 g/dl [facility] Hematocrit 33.2(L) 37.0 - 47.0 % [facility] Mean Corpuscular Volume 85.1 80.0 - 98.0 fL [facility] Mean Corpuscular Hemoglobin 29.0 27.0 - 33.0 pg [facility] Mean Corpuscular HGB Conc 34.0 31.0 - 35.0 g/dl [facility] Red Cell Distribution Width 13.7 11.0 - 16.0 % [facility] Platelet Count 180 160 - 400 X10*3/uL [facility] Mean Platelet Volume 9.9 9.4 - 12.3 fL [facility] Neutrophils Percent Auto 42.6(L) 45 - 73 % [facility] Imm Gran Pct Auto 0.1 0.0 - 0.4 % [facility] Lymphocytes Percent Auto 48.9(H) 20 - 40 % [facility] Monocytes Percent Auto 6.9 2 - 11 % [facility] Eosinophils Percent Auto 1.5 0 - 4 % [facility] Basophils Percent Auto 0.0 0 - 2 % [facility] NRBC Pct Auto 0.0 0.0 - 0.2 /100WBC [facility] Neutrophils Absolute Auto 2.9 2.0 - 8.3 x10*3/uL [facility] Imm Gran Abs Auto 0.01 0.00 - 0.03 X10*3/uL [facility] Lymphocytes Absolute Auto 3.3 1.2 - 4.9 X10*3/uL [facility] Monocytes Absolute Auto 0.5 0.1 - 1.2 X10*3/uL [facility] Eosinophils Absolute Auto 0.1 0.0 - 0.4 X10*3/uL [facility] Basophils Absolute Auto 0.0 0.0 - 0.2 X10*3/uL [facility] NRBC Abs Auto 0.000 0.0 - 0.012 X10*3/uL [facility] 05/18/2024 4:15 PM EST 05/18/2024 4:18 PM EST Generic External Data Provider LAB BLOOD ORDERAB LES Final Result Performing Organization Address [facility] Co de Phone Number [facility] [address] [place] [phone] * HCG, Qualitative, Urine (05/18/2024 4:15 PM EST) Pathologist [facility] Urine NEGATIVE NEGATIVE [facility] Comment:This test was develo ped to detect early . Falsenegative results may occur after the 5th - 7th week ofpregnancy when using this test method. If clinicallyindicated, consider a serum hCG. 05/18/2024 4:15 PM EST 05/18/2024 10:22 PM EST Generic External Data Provider LAB URINE ORDERAB LES Final Result Performing Organization Address [facility] Co de Phone Number [facility] [address] [place] [phone] * (ABNORMAL) Comprehensive Metabolic Panel (05/18/2024 4:15 PM EST) Pathologist [facility] Sodium 135 135 - 145 mmol/L [facility] Potassium 4.2 3.3 - 5.1 mmol/L [facility] Chloride 107 96 - 108 mmol/L [facility] Carbon Dioxide 21(L) 22 - 29 mmol/L [facility] Anion Gap 11(L) 12 - 20 [facility] Urea Nitrogen (BUN) 17(H) 9 - 16 mg/dL [facility] Creatinine, Serum 0.67 0.5 - 1.4 mg/dL [facility] Creatinine Clr Calc Pharmacy 113.0 [facility] Comment:Provided height and weight: 161 cm,64.6 kg.eGFR (calculated from the MDRD study equation) and eCrCl(calculated from the Cockcroft-Gault equation) are based ondifferent parameters and may not yield comparable results.If eCrCl result is absurd, please check patient'sheight/weight. Estimated Glomerular Filt Rate >60 [facility] Comment:Chronic Kidney Disea se: Estimated GFR < 60 mL/min/1.19m3Liubku Kidney Disease: Estimated GFR < 15 mL/min/1.73m2 Glucose 85 60 - 115 mg/dL [facility] Calcium 8.8 8.4 - 10.2 mg/dL [facility] Bilirubin, Total 0.3 0.0 - 1.0 mg/dL [facility] Aspartate Amino Transferase 17 5 - 31 U/L [facility] Alanine Aminotransferase 19 0 - 31 U/L [facility] Total Protein 7.3 6.5 - 8.0 g/dL [facility] Albumin Level 4.2 3.5 - 5.0 g/dL [facility] Alkaline Phosphatase 49 39 - 117 U/L [facility] 05/18/2024 4:15 PM EST 05/18/2024 4:18 PM EST us Generic External Data Provider LAB BLOOD ORDERAB LES Final Result [facility] [address] [place] [phone] * Biopsy cervix (05/07/2024 8:49 AM EST) us Historical Provider MD IN CLINIC/BEDSIDE ORDERAB LES Final Result * US Pelvis Transvaginal (04/23/2024 3:15 PM EST) Anatomical Region Laterality Modality Pelvis Ultrasound 04/23/2024 3:15 PM EST Narrative 06/09/2024 11:56 AM EST ? [facility] ?[address] ?[place] [address] ? Ultrasound Report ? Signed ? Patient: Trevin Bridges,Elizabet ?MR#: [id number] ?? [id number] ? : 1995 ?Acct:[id number] ? Age/Sex: 28 / F ?ADM Date: 04/23/24 ? Loc: HO.US ? Attending Dr: Margie Barrientos DO ? Ordering Physician: Juan Burleson MD ?? Date of Service: 04/23/24 ?? Procedure(s): US pelvic and transvaginal ?? Accession Number(s): [id number] ? cc: Margie Barrientos DO; Juan Burleson [...] DD/ 1515 ? TD/TT: 04/23/24 1534 ? Ground Hand: ? Procedure Note Donotuseinterpreter, Image - 06/09/[address] [address] Ultrasound Report Signed Patient: Fanny Faulkner#: [id number] : 1995Acct:[id number] Age/Sex: 28 / FADM Date: 04/23/24 Loc: .US Attending Dr: Margie Barrientos DO Ordering Physician: Juan Burleson MD Date of Service: 04/23/24 Procedure(s): US pelvic and transvaginal Accession Number(s): [id number] cc: Margie Barrientos DO; Juan Burleson MD [...] by: Chrissy Martínez MD 06/09/2024 11:53 AM EST RP Dictated By: Chrissy Martínez MD Signed By: <Electronically signed by Chrissy Martínez MD in OV> 06/09/24 1153 DD/ 1515 TD/TT: 04/23/24 1534 Ground Hand: [facility] External Provider IMG US PROCEDURES Edited Result - Final * POCT Urine (04/12/2024 4:32 PM EST) Preg Test, Ur Negative Negative, Indeterminate, None Detected, Invalid, Specimen unsatisfactory for evaluation, Weakly Positive QC Media Lot # [id number] Lot# Expiration Date Urine 04/12/2024 4:32 PM EST Margie Barrientos DO POINT OF CARE TEST ENTER/ROULA T ORDERABLES Final Result * (ABNORMAL) Confirmatory Syphilis Profile (04/03/2024 2:24 PM EST) Rapid Plasma Reagin, Quant Reactive 1:2(A) Nonreactive [facility] Treponema pallidum Antibody, Particle Agglutination Reactive(A) Nonreactive [facility] Comment:These results must b e reported by the ordering clinician orclinical facility to the [place] [facility]as required by state law.Testing performed at: [address] [address] 04/03/2024 2:24 PM EST 04/03/2024 4:18 PM EST Margie Barrientos DO LAB BLOOD ORDERABLES Final R esult [facility] [address] [place] [phone] * (ABNORMAL) RPR (Monitor) with Reflex to??Titer (04/03/2024 2:24 PM EST) Only the most recent of2 resultswithin the time period is included. RPR (Monitor) w/Refl Titer REACTIVE( A) NON-REACT RITA [facility] Comment:The RPR is a non-juliana ponemal-specific test; therefore,a treponemal- specific confirmatory test should beperformed unless prior syphilis infection has beendocumented for this patient.THIS TEST WAS PERFORMED AT:[facility] [address] [phone] BERKOWITZ MD Rapid Plasma Reagin Ab Titer 1:4(A) [facility] Comment:THIS TEST WAS PERFOR MED AT:[employer] [address] [phone] BERKOWITZ MD Blood Venous blood specimen / Unknown 04/03/2024 2:24 PM EST 04/03/2024 4:18 PM EST Margie Barrientos DO LAB BLOOD ORDERABLES Final R esult [facility] [address] [place] [phone] * Colposcopy (04/01/2024 8:00 AM EST) Historical Provider IN CLINIC/BEDSIDE ORDERAB LES Final Result * HCV RNA BY PCR, QN RFX PARAG (03/25/2024 3:51 PM EST) Pathologist [facility] HCV RNA PCR QN <15 NOT DETECTED NOT DETECTED IU/mL [facility] HCV RNA PCR QN <1.18 NOT DETECTED NOT DETECTED Log IU/mL [facility] HCV RNA COMMENT SEE NOTE [facility] Comment:For additional infor mation, please refer tohttp://education.[employer]/faq/UFD50d0(This link is being provided for informational/Educational purposes only.)THIS TEST WAS PERFORMED AT:[facility] [place] [phone] BERKOWITZ MD HCV RNA GENOTYPE,LIPA TNP [facility] Comment:Test not indicated. 03/25/2024 3:51 PM EST 03/25/2024 5:36 PM EST [facility] LAB BLOOD ORDERABLES Nikki l Result Performing Organization Address City/[facility]/ZIP Co de Phone Number [facility] [address] [place] [phone] * HIV-1/2 Antigen and Antibodies, Fourth Generation, with Reflexes (03/25/2024 3:51 PM EST) HIV AB/AG Nonreactive Nonreactive [facility] Comment:HIV-1 p24 Ag and/or HIV-1/HIV-2 Ab not detected.A test result that is nonreactive does not exclude thepossibility of exposure to or infection with HIV-1 and/orHIV-2. Nonreactive results in this assay for individualswith prior exposure to HIV-1 and/or HIV-2 may be due toantigen and antibody levels that are below the limit ofdetection of this assay.[employer] HIV Ag/Ab Combo assay result andsupplemental assay results should be interpreted inconjunction with the patient's clinical presentation,history and other laboratory results. If the results areinconsistent with clinical evidence, additional testing issuggested to confirm the result. Blood Venous blood specimen / Unknown 03/25/2024 3:51 PM EST 03/25/2024 5:36 PM EST [facility] LAB BLOOD ORDERABLES Nikki l Result Performing Organization Address City/[facility]/ZIP Co de Phone Number [facility] [address] [place] [address] [phone] * (ABNORMAL) Pap Smear (03/05/2024 4:00 PM EDT) SOURCE: SEE NOTE [facility] Comment:Cervix Report Status: [facility] Clinical Information: SEE NOTE [facility] Comment:None given LMP: SEE NOTE [facility] Comment:NONE GIVEN Prev. PAP: SEE NOTE [facility] Comment:NONE GIVEN Prev. BX: SEE NOTE [facility] Comment:NONE GIVEN Statement Of Adequacy: SEE NOTE [facility] Comment:Satisfactory for bry luation.Endocervical/transformation zone component absent. General Categorization: SEE NOTE(A) [facility] Comment:Cytology Results: Ep ithelial Cell Abnormality Interpretation/Resul t: SEE NOTE(A) [facility] Comment:High Grade Squamous Intraepithelial Lesion (HSIL) Cytology Comment SEE NOTE [facility] Comment:This Pap test has be en evaluated with computerassisted technology.To assist in maintaining the highest degree ofaccuracy and correlation between cytologic andhistologic findings, please forward follow-updata for subsequent biopsies performed byany other non-[facility] laboratory. Awning Frame Maker: SEE NOTE [facility] Comment:BH, CT(ASCP)CT seth fal[place] location: 2Checkout [address] [address]Mcuzv preparation performed at: [facility] [address] CLIA No. [id number] Review Awning Frame Maker: [facility] Pathologist SEE NOTE [facility] Comment:Colton PatelBoard Certified in Anatomic, Clinical and Cytopathology(electronic signature)Consulting [address] [phone] PAP Infection [facility] See Note SEE [facility] Comment:EXPLANATORY NOTE:The Pap is a screening test for cervical cancer. It isnot a diagnostic test and is subject to false negativeand false positive results. It is most reliable when asatisfactory sample, regularly obtained, is submittedwith relevant clinical findings and history, and whenthe Pap result is evaluated along with historic andcurrent clinical information.THIS TEST WAS PERFORMED AT:[employer] [address] [phone] BERKOWITZ MD Pap Vial 03/05/2024 4:00 PM EDT 03/05/2024 5:40 PM EDT Narrative [facility] - 03/15/2024 10:45 AM EDT SEE SCANNED RESULTS IN EMRCERVIX us Ayala RICHM LAB PATHOLOGY ORDERABLES Final Result [facility] [address] [place] [phone] * Hepatitis C Antibody with Reflex to HCV, RNA, Quantitative, Real-Time PCR (01/02/2024 11:40 AM EDT) Hepatitis C Antibody Nonreactive Nonreactive [facility] Comment:Antibodies to HCV no t detected; does not exclude early acuteHCV infection. Blood Venous blood specimen / Unknown 01/02/2024 11:40 AM EDT 01/02/2024 1:14 PM EDT us Margie Barrientos DO LAB BLOOD ORDERABLES Final R esult [facility] [address] [place] [phone] from Last 3 Months or Most Recently Relevant to Health Maintenance Insurance [employer] [facility] Care Teams Wool Washer Feeder Relationship Specialty Start Date End Date Margie Barrientos DO [address] [place] [phone] PCP - General Family Medicine 01/02/24
--- OUTSIDE RECORDS SUMMARY | 2024-06-24 19:46 | XMS_ITS | Encounter Summary ---
Author Organization [employer] Address [address] [facility] 7[address] [place] [address] Care Team Providers Care Hose Tubing Backer Name Role Phone Margie Barrientos DO Primary Care Provider + [phone] Reason for Visit * Reason Onset Date Comments NTTS 06/17/2024 Encounter Details Date Type Department Care Team (Late st Contact Info) Description 06/17/2024 Telephone [facility] [address] [place], [place] [phone] Elsa iCfuentes, RN [address] [place] [address] NTTS Social History Tobacco Use Types Packs/Day Years [...] AM EDT documented as of this encounter Miscellaneous Notes * Telephone Encounter - Elsa Cifuentes RN - 06/17/2024 3:44 PM EST RN received NTTS from 06/17/24: I am with a lot of cough, my nose is in pain as well. I was NTTS RN's attempted to reach patient however patient did not answer and they left a VM. TC placed to patient [phone] to status check however patient did not answer, RN left VM requesting CB to red team nurses. Patient to f/u PRN. documented in this encounter Plan of Treatment Not on file documented as of this encounter Visit Diagnoses Not on filedocumented in this encounter Additional Health Concerns Assessment Noted Time PHQ-9 Depression Total Score: 12 024 11:16 AM EDT documented as of this encounter Care Teams Hose Tubing Backer Relationship Specialty Start Date End Date Margie Barrientos DO [address] [place] [address] PCP - General Family Medicine 01/02/24 documented as of this encounter
--- OUTSIDE RECORDS SUMMARY | 2024-06-24 19:46 | XMS_ITS | Encounter Summary ---
Author Organization [employer] Address [address] [facility] [address] [place] [address] Care Team Providers Care Fitter/Welder Name Role Phone Margie Barrientos DO Primary Care Provider [phone] Reason for Visit * Reason Onset Date Comments Med Refill 04/30/2024 Encounter Details Date Type Department Care Team (Late st Contact Info) Description 04/30/2024 Refill [facility]INE [address] [place], [place] [phone] Margie Barrientos DO [address] [place], [place] [phone] Social History Tobacco Use Types Packs/Day Years Used Date Smoking Tobacco: Former Cigarettes Smokeless Tobacco: Never Alcohol Use Standard Drinks/Week Comments Never 0 (1 standard drink = 0.6 oz pur e alcohol) Depression Answer Date Recorded Patient Health Questionnaire-9 Score 12 02/13/2024 Patient Health Questionnaire-9 Score 02/13/2024 Last PHQ-9: Questionnaire Data Not on file 0 02/13/2024 Housing Stability Answer Date Recorded What is your housing situation today? I do not have housing (Staying with others, in a hotel, in a skilled nursing, living outside on the street, on a [...] documented as of this encounter Care Teams Fitter/Welder Relationship Specialty Start Date End Date Margie Barrientos DO [address] [place] [phone] PCP - General Family Medicine 01/02/24 documented as of this encounter
--- OUTSIDE RECORDS SUMMARY | 2024-06-24 19:46 | XMS_ITS | Encounter Summary ---
Author Organization [employer] Address [address] [facility] [address] [place] [address] Care Team Providers Care Electrotype Finisher Name Role Phone Margie Barrientos DO Primary Care Provider [phone] Encounter Details Date Type Department Care Team (Late st Contact Info) Description 04/15/2024 Orders Only [facility] [address] [place] [address] ProviderRashid MD Social History Tobacco Use Types Packs/Day Years [...] with others, in a hotel, in a care home, living outside on the street, on [...] Procedure Name Priority Date/Time Associated Diagnosis Comments COLPOSCOPY Routine 04/01/2024 8:00 AM EST documented in this encounter Results * Colposcopy (04/01/2024 8:00 AM EST) us Historical Provider MD IN CLINIC/BEDSIDE ORDERAB LES Final Result documented in this encounter Visit Diagnoses Not on filedocumented in this encounter Additional Health Concerns Assessment Noted Time PHQ-9 Depression Total Score: 12 024 11:16 AM EDT documented as of this encounter Care Teams Electrotype Finisher Relationship Specialty Start Date End Date Margie Barrientos DO [address] [place] [address] PCP - General Family Medicine 01/02/24 documented as of this encounter
--- OUTSIDE RECORDS SUMMARY | 2024-06-24 19:46 | XMS_ITS | Encounter Summary ---
Author Organization [employer] Address [address] [facility] [address] [place] [address] Care Team Providers Care Ceramic Engineering Professor Name Role Phone Margie Barrientos DO Primary Care Provider [phone] Reason for Visit * Reason Onset Date Comments Med Refill 04/26/2024 Encounter Details Date Type Department Care Team (Late st Contact Info) Description 04/26/2024 Refill [facility] [address] [place], [place] [phone] Margie Barrientos DO [address] [place], [place] [phone] Social History Tobacco Use Types Packs/Day Years Used Date Smoking Tobacco: Former Cigarettes Smokeless Tobacco: Never Alcohol Use Standard Drinks/Week Comments Never 0 (1 standard drink = 0.6 oz pur e alcohol) Depression Answer Date Recorded Patient Health Questionnaire-9 Score 02/13/2024 Patient Health Questionnaire-9 Score 02/13/2024 Last [...] documented as of this encounter Care Teams Ceramic Engineering Professor Relationship Specialty Start Date End Date Margie Barrientos DO [address] [place] [phone] PCP - General Family Medicine 01/02/24 documented as of this encounter
--- OUTSIDE RECORDS SUMMARY | 2024-06-24 19:46 | XMS_ITS | Encounter Summary ---
Author Organization [employer] Address [address] [facility] 7t [place] [address] Care Team Providers Care Transfer Professor Name Role Phone Margie Barrientos DO Primary Care Provider [phone]- [phone] Encounter Details Date Type Department Care Team (Late st Contact Info) Description 01/04/2024 Orders Only [facility] MEDICINE [address] [place], [place] [phone] Margie Barrientos DO [address] [place], [place] [phone] Syphilis (Primary Dx) Social History Tobacco Use Types Packs/Day Years Used Date Smoking Tobacco: Never Smokeless Tobacco: Never Alcohol Use Standard Drinks/Week Comments Never 0 (1 standard drink = 0.6 oz pur e alcohol) Depression Answer Date Recorded Patient Health Questionnaire-9 Score 22 01/02/2024 Patient Health Questionnaire-9 Score 22 01/02/2024 Last PHQ-9: Questionnaire Data Not on file 0 01/02/2024 Housing Stability Answer Date Recorded What is [...] Answer Date Recorded Patient Health Questionnaire-2 Score 6 01/02/2024 Comments No Sex and Gender Information Value Date Recorded Sex Assigned at Unknown 01/01/2024 8:37 AM EDT Legal Sex Female 1:11 PM EDT Gender Identity Other 01/01/2024 8:37 AM EDT Sexual Orientation Don't know 01/01/2024 8: 38 AM EDT documented as of this encounter Plan of Treatment Not on file documented as of this encounter Procedures Procedure Name Priority Date/Time Associated Diagnosis Comments BACTERIAL VAGINOSIS PANEL Routine 01/19/2024 12:42 PM EDT Syphilis WET PREP, GENITAL Routine 01/19/2024 12: 42 PM EDT Syphilis URINALYSIS, COMPLETE, WITH REFLEX TO CULTURE Routine 01/19/2024 12:17 PM EDT Syphilis CBC WITH AUTO DIFFERENTIAL Routine 01/19/2024 11:31 AM EDT Syphilis APTT Routine 01/19/2024 11:31 AM EDT Syphilis PROTHROMBIN TIME-INR Routine 01/19/2024 11:31 AM EDT Syphilis HCG, TOTAL, QN Routine 01/19/2024 11:31 AM EDT Syphilis HEPATIC FUNCTION PANEL Routine 01/19/2024 11:31 AM EDT Syphilis BASIC METABOLIC PANEL Routine 01/19/2024 11:31 AM EDT Syphilis documented in this encounter Results * (ABNORMAL) Bacterial Vaginosis (01/19/2024 12:42 PM EDT) TRICHOMONAS VAGINALIS DETECTION BY PCR NOT DETECTED Not Detect [facility] BACTERIAL VAGINOSIS DETECTION BY PCR POSITIVE(A) Negative [facility] Comment:The BV organism targ ets [...] DETECTION BY PCR NOT DETECTED Not Detect [facility] Shira glab krusei PCR NOT DETECTED Not Detect [facility] 01/19/2024 12:4 2 PM EDT 01/19/2024 12:47 PM EDT Generic External Data Provider LAB MICROBIOLOGY - GENERAL ORDERABLES Final Result Performing Organization Address [facility]/ZIP Co de Phone Number [facility] [address] [place] [phone] * Wet prep, genital (01/19/2024 12:42 PM EDT) Vaginal Fluid Vaginal structure / Unknown 01/19/2024 12:42 PM EDT 01/19/2024 12:45 PM EDT Comment:Vaginal Narrative [facility] - 01/19/2024 12:52 PM EDT Trichomonas Prep Direct Microscopic Exam Trichomonas Prep No trichomonads or yeast seen Specimen Source: Vaginal Generic External Data Provider LAB MICROBIOLOGY - GENERAL ORDERABLES Final Result Performing Organization Address [facility] Co de Phone Number [facility] [address] [place] [phone] * (ABNORMAL) Urinalysis, Complete, with Reflex to Culture (01/19/2024 12:17 PM EDT) Color Urine Yellow [facility] Appearance Urine Turbid [facility] PH 8.5 5.0 - 9.0 [facility] Glucose Urine UA Negative Negative mg/dL [facility] Urine Blood Negative Negative [facility] Specific Pettigrew - Urine 1.025 1.005 - 1.025 [facility] Urine Protein 30 (1+)(A) Neg-Trace mg/dL [facility] Urine Ketones Negative Negative mg/dL [facility] Nitrite Urine Negative Negative [facility] Leukocyte Esterase Urine Moderate (2+)(A) Negative [facility] RBC Urine 0-2 0 - 2 /HPF [facility] Urine WBC 6-10 0 - 5 /HPF [facility] Urine Squamous Epithelial Cell 11-20 0 - 2 /HPF [facility] Other Crystals Urine Present [facility] Urine Bacteria 2+ None Seen [facility] Hyaline Casts, Urine 0-2 0 - 2 /LPF [facility] 01/19/2024 12:1 7 PM EDT 01/19/2024 12:21 PM EDT Narrative [facility] - 01/19/2024 12:37 PM EDT [id number], Clean Catch us Generic External Data Provider LAB URINE ORDERAB LES Final Result Performing Organization Address City/State/[facility] Co de Phone Number [facility] [address] [place] [phone] * hCG, Total, Quantitative (01/19/2024 11:31 AM EDT) HCG Quantitative <2 mIU/mL [facility] Comment:Weeks post LMP Appro ximate hCG(Last Menstrual Period) Range (mIU/ml)3 - 4 weeks 9 - 1304 - 5 weeks 75 - 2,6005 - 6 weeks 850 - 20,8006 - 7 weeks 4000 - 100,2007 - 12 weeks 11,500 - 289,92496 - 16 weeks 18,300 - 137,23005 - 29 weeks (2nd trimester) 1,400 - 53,81320 - 41 weeks (3rd trimester) 940 - 60,000The Wayne B- hCG assay is used for the early detection ofpregnancy; it cannot be used to diagnose any conditionunrelated to . If a B-hCG level is not supportedby the clinical evidence, results should be confirmed by analternative method (qualitative urine hCG, for example). 01/19/2024 11:3 1 AM EDT 01/19/2024 11:34 AM EDT us Generic External Data Provider LAB BLOOD ORDERAB LES Final Result [facility] [address] [place] [phone] * (ABNORMAL) Basic Metabolic Panel (01/19/2024 11:31 AM EDT) Sodium 139 135 - 145 mmol/L [facility] Potassium 3.9 3.3 - 5.1 mmol/L [facility] Chloride 106 96 - 108 mmol/L [facility] Carbon Dioxide 28 22 - 29 mmol/L [facility] Anion Gap 9(L) 12 - 20 [facility] Urea Nitrogen (BUN) 7(L) 9 - 16 mg/dL [facility] Creatinine, Serum 0.77 0.5 - 1.4 mg/dL [facility] Creatinine Clr Calc Pharmacy 101.7 [facility] Comment:Provided height and weight: 168 cm,65.3 kg.eGFR (calculated from the MDRD study equation) and eCrCl(calculated from the Cockcroft-Gault equation) are based ondifferent parameters and may not yield comparable results.If eCrCl result is absurd, please check patient'sheight/weight. Estimated Glomerular Filt Rate >60 [facility] Comment:NOTE: For -Am erican individuals, multiply the result by 1.210.Chronic Kidney Disease: Estimated GFR < 60 mL/min/1.49s7Pcgssd Kidney Disease: Estimated GFR < 15 mL/min/1.73m2 Glucose 70 60 - 115 mg/dL [facility] Calcium 10.0 8.4 - 10.2 mg/dL [facility] 01/19/2024 11:3 1 AM EDT 01/19/2024 11:34 AM EDT Generic External Data Provider LAB BLOOD ORDERAB LES Final Result Performing Organization Address [facility] Co de Phone Number [facility] [address] [place] [phone] * (ABNORMAL) Hepatic Function Panel (01/19/2024 11:31 AM EDT) Bilirubin, Total 0.5 0.0 - 1.0 mg/dL [facility] Bilirubin, Direct 0.2 0.0 - 0.5 mg/dL [facility] Aspartate Amino Transferase 26 5 - 31 U/L [facility] Alanine Aminotransferase 31 0 - 31 U/L [facility] Total Protein 8.2(H) 6.5 - 8.0 g/dL [facility] Albumin Level 4.7 3.5 - 5.0 g/dL [facility] Alkaline Phosphatase 55 39 - 117 U/L [facility] 01/19/2024 11:3 1 AM EDT 01/19/2024 11:34 AM EDT Generic External Data Provider LAB BLOOD ORDERAB LES Final Result Performing Organization Address [facility] Co de Phone Number [facility] [address] [place] [phone] * Partial Thromboplastin Time, Activated (APTT) (01/19/2024 11:31 AM EDT) Partial Thromboplastin Time 31.3 26.0 - 36.8 SEC [facility] Comment:For information rega rding the monitoring of direct thrombininhibitors, please refer to Pharmacy. 01/19/2024 11:3 1 AM EDT 01/19/2024 11:34 AM EDT Generic External Data Provider LAB BLOOD ORDERAB LES Final Result Performing Organization Address [facility]/ZIP Co de Phone Number [facility] [address] [place] [phone] * Prothrombin Time-INR (01/19/2024 11:31 AM EDT) [facility] Prothrombin Time 11.5 11.1 - 13.3 SEC [facility] INTERNATIONAL NORM RATIO 0.9 0.9 - 1.1 [facility] Comment:INTERNATIONAL NORMAL IZED RATIO (INR) REFERENCE RANGES Reference RangeFor patients not on anticoagulant therapy: 0.9 - 1.1INR ranges for oral anticoagulanttherapy:For prevention and treatment of venous thrombosis and pulmonary embolism: 2.0 - 3.0For acute myocardial infarction with aspirin therapy: 2.0 - 3.0For acute myocardial infarction without aspirin therapy: 3.0 - 4.0For patients with mechanical prosthetic heart valves: 2.5 - 3.5 01/19/2024 11:3 1 AM EDT 01/19/2024 11:34 AM EDT us Generic External Data Provider LAB BLOOD ORDERAB LES Final Result Performing Organization Address [facility] Co de Phone Number [facility] [address] [place] [phone] * (ABNORMAL) CBC auto differential (01/19/2024 11:31 AM EDT) [facility] White Blood Count 6.1 4.8 - 10.8 X10*3/uL [facility] Red Blood Count 4.43 4.20 - 5.50 X10*6/uL [facility] Hemoglobin 13.0 12.0 - 16.0 g/dl [facility] Hematocrit 39.0 37.0 - 47.0 % [facility] Mean Corpuscular Volume 88.0 80.0 - 98.0 fL [facility] Mean Corpuscular Hemoglobin 29.3 27.0 - 33.0 pg [facility] Mean Corpuscular HGB Conc 33.3 31.0 - 35.0 g/dl [facility] Red Cell Distribution Width 13.1 11.0 - 16.0 % [facility] Platelet Count 189 160 - 400 X10*3/uL [facility] Mean Platelet Volume 9.9 9.4 - 12.3 fL [facility] Neutrophils Percent Auto 41.5(L) 45 - 73 % [facility] Imm Gran Pct Auto 0.3 0.0 - 0.4 % [facility] Lymphocytes Percent Auto 49.3(H) 20 - 40 % [facility] Monocytes Percent Auto 7.4 2 - 11 % [facility] Eosinophils Percent Auto 1.3 0 - 4 % [facility] Basophils Percent Auto 0.2 0 - 2 % [facility] NRBC Pct Auto 0.0 0.0 - 0.2 /100WBC [facility] Neutrophils Absolute Auto 2.5 2.0 - 8.3 x10*3/uL [facility] Imm Gran Abs Auto 0.02 0.00 - 0.03 X10*3/uL [facility] Lymphocytes Absolute Auto 3.0 1.2 - 4.9 X10*3/uL [facility] Monocytes Absolute Auto 0.5 0.1 - 1.2 X10*3/uL [facility] Eosinophils Absolute Auto 0.1 0.0 - 0.4 X10*3/uL [facility] Basophils Absolute Auto 0.0 0.0 - 0.2 X10*3/uL [facility] NRBC Abs Auto 0.000 0.0 - 0.012 X10*3/uL [facility] 01/19/2024 11:3 1 AM EDT 01/19/2024 11:34 AM EDT us Generic External Data Provider LAB BLOOD ORDERAB LES Final Result [facility] [address] [place] [phone] documented in this encounter Visit Diagnoses Diagnosis Syphilis- Primary Unspecified syphilis documented in this encounter Additional Health Concerns Assessment Noted Time PHQ-9 Depression Total Score: 22 08/13/2 024 9:04 AM EDT documented as of this encounter Care Teams Transfer Professor Relationship Specialty Start Date End Date Margie Barrientos DO [address] [place] [phone] PCP - General Family Medicine 01/02/24 documented as of this encounter
--- OUTSIDE RECORDS SUMMARY | 2024-06-24 19:46 | XMS_ITS | Referral Summary ---
Author Organization [facility] Address [address] [place] [address] Care Team Providers Care Assistant Professor Of Art Name Role Phone Marige Barrientos Primary Care Provider +1- [phone] Encounters Date Type Department Care Team Description 06/03/2024 Telephone [facility] Obstetrics and Gynecology [address] [place] [address] Complaint Investigator: Quin Lerner MD MPH 05/31/2024 Telephone [facility] Obstetrics and Gynecology [address] [place] [address] Complaint Investigator: Quin Lerner MD MPH 05/30/2024 Telephone [facility] Obstetrics and Gynecology [address] [place] [address] Complaint Investigator: Quin Lerner MD MPH Results 05/21/2024 Telephone [facility] Obstetrics and Gynecology [address] [place] [address] Complaint Investigator: Lesvia Fernandez RN 05/17/2024 Telephone [facility] Obstetrics and Gynecology [address] [place] [address] Complaint Investigator: Quin Lerner MD MPH 05/07/2024 11:30 AM EST Procedure visit [facility] Obstetrics and Gynecology [address] [place] [address] Complaint Investigator: Quin Lerner MD MPH SAMUEL III (cervical intraepithelial neoplasia III) (Primary Dx); HGSIL (high grade squamous intraepithelial lesion) on Pap smear of cervix 04/12/2024 Telephone [facility] Obstetrics and Gynecology [address] [place] [phone] Complaint Investigator: Quin Lerner MD MPH PAC Appt Request - Established 04/01/2024 3:30 PM EST Procedure visit [facility] Obstetrics and Gynecology [address] [place] [phone] Complaint Investigator: Quin Lerner MD MPH HGSIL on Pap smear of cervix (Primary Dx) from Last 3 Months Allergies No known active allergies Medications melatonin 3 mg capsule Take 3 mg by mouth once daily as needed. 03/30/2024 5 Active FLUoxetine (PROzac) 20 mg capsule Take 40 mg by mouth daily. 03/30/2024 5 Active hydrOXYzine (VISTARIL) 25 mg capsule SMARTSI Capsule(s) By Mouth Every 6 Hours PRN Active Social History Tobacco Use Types Packs/Day Years [...] Description 12/02/2024 3:30 PM EDT Procedure visit [facility] Obstetrics and Gynecology [address] [place] [phone] Complaint Investigator: Quin Lerner MD MPH [address] [place] [phone] Procedures * Due to [place] FilmL[employer] law, this organization might not be sharing [...] Last 3 Months Results * Due to [place] FilmL[employer] law, this organization might not be sharing [...] squamous epithelium. - Fragments of proliferative endometrium. [facility] 05/10/2024 9:28 AM EST [facility] Clinical History SAMUEL III [facility] 05/10/2024 9:28 AM [facility] Gross Description 1. Endocervix, [...] specimen is entirely submitted in cassette 2A. [facility] 05/10/2024 9:28 AM [facility] Gross Description User Grossing complete by Lucero Arroyo on 05/07/2024 2:37 PM [facility] 05/10/2024 9:28 AM [facility] Best Block for Ancillary Studies 1A [facility] 05/10/2024 9:28 AM [facility] Recurly [facility] Embedded Images [facility] 05/10/2024 9:28 AM [facility] Recurly [facility] Disclaimer Some of these tests were developed and their performance characteristics determined by the Immunoperoxidase/ Histology Laboratory of [facility]. They have not been cleared or [...] to perform high complexity clinical laboratory testing. [facility] 05/10/2024 9:28 AM [facility] Recurly [facility] Resulting Agency Case was signed out at [facility], Department of Pathology, [facility] CLIA [id number] [facility] 05/10/2024 9:28 AM EST [facility] Abnormal Yes(A) (none) [facility] 05/10/2024 9:28 AM EST [facility] Report Header Surgical Pathology Report ? Case: [id number] ? Authorizing Provider: ??Quin Cazares MD MPH ?Collected: ? 05/07/2024 1219 ? Ordering Location: ? [facility] ? Received: ?05/07/2024 135 ? [facility] ? Obstetrics and Gynecology ? Pathologist: ? Rosa Nova MD ? Specimens: ?? 1) - Endocervix, leep/cone at 6oclock ? 2) - Endocervix, ECC ? 05/10/2024 9:28 AM EST [facility] Tissue Endocervical structure / Unknown Non-Blood Collection / Unknown 05/07/2024 12:19 PM EST 05/07/2024 1:54 PM EST Tissue specimen (specimen) Endocervical structure / Unknown 05/07/2024 12:19 PM EST 05/07/2024 1:54 PM EST us Quin Cazares MD MPH LAB PATHOLOG[facility] Final Result Performing Organization Address City/State/[facility] Co de Phone Number [facility] [address] [place] [address], [facility] [address] [place] [address] * POCT HCG, Urine, non-interfaced (05/07/2024 11:39 AM EST) Only the most recent of2 resultswithin the time period is included. Control band present? Yes Background Clear? Yes Preg Test, Ur Negative Negative Urine 05/07/2024 11:3 9 AM EST us Quin Cazares MD MPH POINT OF CARE TEST ORDERABL ES Final Result from Last 3 Months Insurance HSNO/[place] [address] [place] [address] Care Teams Assistant Professor Of Art Relationship Specialty Start Date End Date Margie Barrientos [address] [place] [phone] PCP - General Family Medicine 03/20/24
--- OUTSIDE RECORDS SUMMARY | 2024-06-24 19:46 | XMS_ITS | Encounter Summary ---
Author Organization [employer] Address [address] [facility] 7t [place] [address] Care Team Providers Care Dinkey Brakeman Name Role Phone Margie Barrientos DO Primary Care Provider [phone] Reason for Visit * Reason Onset Date Comments Med Refill 02/05/2024 Encounter Details Date Type Department Care Team (Late st Contact Info) Description 02/05/2024 Refill [facility] MEDICINE [address] [place], [place] [phone] Margie Barrientos DO [address] [place], [place] [phone] Social History Tobacco Use Types Packs/Day Years [...] with others, in a hotel, in a senior living, living outside on the street, on a [...] Recorded Patient Health Questionnaire-2 Score 6 01/02/2024 Internet Access Answer Date Recorded Internet Access [...] Noted Time PHQ-9 Depression Total Score: 22 024 9:04 AM EDT documented as of this encounter Care Teams Dinkey Brakeman Relationship Specialty Start Date End Date Margie Barrientos DO [address] [place] [phone] PCP - General Family Medicine 01/02/24 documented as of this encounter
--- OUTSIDE RECORDS SUMMARY | 2024-06-24 19:46 | XMS_ITS | Encounter Summary ---
Author Organization [employer] Address [address] [facility] 7t [place] [address] Care Team Providers Care Conference Organizer Name Role Phone Margie Barrientos DO Primary Care Provider [phone]- [phone] Encounter Details Date Type Department Care Team (Late st Contact Info) Description 05/28/2024 Orders Only [facility] MEDICINE [address] [place] [address] ProviderRashid MD Social History Tobacco Use Types [...] with others, in a hotel, in a fci, living outside on the street, on a [...] Procedure Name Priority Date/Time Associated Diagnosis Comments BIOPSY CERVIX Routine 05/07/2024 8:49 AM EST documented in this encounter Results * Biopsy cervix (05/07/2024 8:49 AM EST) us Historical Provider MD IN CLINIC/BEDSIDE ORDERAB LES Final Result documented in this encounter Visit Diagnoses Not on filedocumented in this encounter Additional Health Concerns Assessment Noted Time PHQ-9 Depression Total Score: 12 024 11:16 AM EDT documented as of this encounter Care Teams Conference Organizer Relationship Specialty Start Date End Date Margie Barrientos DO [address] [place] [address] PCP - General Family Medicine 01/02/24 documented as of this encounter
--- OUTSIDE RECORDS SUMMARY | 2024-06-24 19:46 | XMS_ITS | Encounter Summary ---
Author Organization [employer] Address [address] [facility] 7t [place] [address] Care Team Providers Care Harm Reduction Worker Name Role Phone Margie Barrientos DO Primary Care Provider + [phone] Reason for Visit * Reason Onset Date Comments Med Refill 02/14/2024 Encounter Details Date Type Department Care Team (Late st Contact Info) Description 02/14/2024 Refill [facility] MEDICINE [address] [place], [place] [phone] Margie Barrientos DO [address] [place], [place] [phone] Social History Tobacco Use Types Packs/Day Years [...] with others, in a hotel, in a custodial, living outside on the street, on a [...] documented as of this encounter Care Teams Harm Reduction Worker Relationship Specialty Start Date End Date Margie Barrientos DO [address] [place] [phone] PCP - General Family Medicine 01/02/24 documented as of this encounter
--- OUTSIDE RECORDS SUMMARY | 2024-06-24 19:46 | XMS_ITS | Encounter Summary ---
Author Organization [facility] Address [address] [place] [address] Care Team Providers Care Socket Puller Name Role Phone Margie Barrientos Primary Care Provider +1- [phone] Encounter Details Date Type Department Care Team (Late st Contact Info) Description 05/17/2024 Telephone [facility] Obstetrics and Gynecology [address] [place] [address] Hvac Sheet Metal Installer: Quin Lerner MD MPH [address] [place] [address] Social History Tobacco Use Types Packs/Day Years Used Date Smoking Tobacco: Never Smokeless Tobacco: Never Comments No Sex and Gender Information Value Date Recorded Sex Assigned at Female 03/28/2024 2:18 PM EST Legal Sex Female 2:06 PM EDT Gender Identity Female 03/28/2024 2:18 PM EST Sexual Orientation Straight 03/28/2024 2: 18 PM EST documented as of this encounter Miscellaneous Notes * Telephone Encounter - Demarcus Ordoñez RN - 05/20/2024 9:34 AM EST EDDA 05/07/24. Slovenian # [id number] Called Monday and had pain. +BV and bleeding at ER Monday. Got a dose of morphine and felt betterbut pain is back. Has medication for BV but no med for pain or bleeding. Bleeding is light red. Wonders if could be period. Says she is due now. Says ER says no infection. Amount is slight. Yesterday 1 pad. Red with voiding only today. Ibuprofen and tylenol not working. Pain level 8/10. Took tylenol and motrin yesterday and today. Says has put nothing in vagina. Says can't get to [place] today. Wants to call pcp. PCP may not see her as this may be related toa procedure that PCP did not do. Advised Pain 10/10, fever over 100.4, or soaking a pad per hour needs to go to ER. Will call back with any changes. Pt verbalized understanding. Will message Dr Cazares this information. * Telephone Encounter - Magali Deluna LPN - 05/17/2024 2:39 PM EST Return Call to 28 y/o Slovenian Speaking pt with Slovenian Int Id# [id number] Attempted call x3. No answer Lmovm-Nurse returning call If patient is experiencing intolerable severe pain She should go to Emergency Department promptly. Our office number [phone] * Telephone Encounter - No Patel - 05/17/2024 11:18 AM EST Pt is calling had a procedure on 05/07 with , States that she is having intolerable severe pain. Please call pt back at [phone]. Thanks. documented in this encounter Plan of Treatment Upcoming Encounters Date Type Department Care Team (Late st Contact Info) Description 12/02/2024 3:30 PM EDT Procedure visit [facility] Obstetrics and Gynecology [address] [place] [address] Hvac Sheet Metal Installer: Quin Lerner MD MPH [address] [place] [phone] documented as of this encounter Visit Diagnoses Not on filedocumented in this encounter Care Teams Socket Puller Relationship Specialty Start Date End Date Margie Barrientos [address] [place] [phone] PCP - General Family Medicine 03/20/24 documented as of this encounter
--- OUTSIDE RECORDS SUMMARY | 2024-06-24 19:46 | XMS_ITS | Encounter Summary ---
Author Organization [employer] Address [address] [place] [address] Care Team Providers Care Pnp Name Role Phone Margie Barrientos DO Primary Care Provider [phone]- [phone] Reason for Visit * Reason Onset Date Comments Telephone Call 05/31/2024 Encounter Details Date Type Department Care Team ([facility] st Contact Info) Description 05/31/2024 Telephone [facility] MEDICINE [address] [place], [place] [phone] Margie Barrientos DO [address] [place], [place] [phone] Telephone Call Social History Tobacco Use Types Packs/Day Years [...] with others, in a hotel, in a alf, living outside on the street, on a [...] encounter Miscellaneous Notes * Telephone Encounter - Annalee Dubois RN - 05/31/2024 11:05 AM EST Pt had biopsy at [facility] with Dr Cazares (SENIOR TECHNOLOGIST) on 05/09/24. Returned call to pt using Cards [employer] mail deliverer #[id number] who confirmed she is asking to discuss this result. Per chart, pt called into [facility] yesterday asking about this as well. Advised pt to call Dr Cazares's office again at [phone]. Pt verbalized understanding, stated she will call that office. Patient to call clinic PRN. * Telephone Encounter - Matilda Choudhury - 05/31/2024 10:01 AM EST Pt walked in requesting apt with community cultural development officer as she states some biopsy results have come back thatshe would like to discuss. Pt unsure if that would have to be discussed with community cultural development officer or pcp. documented in this encounter Plan of Treatment Not on file documented as of this encounter Visit Diagnoses Not on filedocumented in this encounter Additional Health Concerns Assessment Noted Time PHQ-9 Depression Total Score: 12 02/12/ 024 11:16 AM EDT documented as of this encounter Care Teams Pnp Relationship Specialty Start Date End Date Margie Barrientos DO [address] [place] [address] PCP - General Family Medicine 01/02/24 documented as of this encounter
--- OUTSIDE RECORDS SUMMARY | 2024-06-24 19:46 | XMS_ITS | Encounter Summary ---
Author Organization [employer] Address [address] [facility] [address] [place] [address] Care Team Providers Care Bed Laborer Name Role Phone Margie Barrientos DO Primary Care Provider [phone] Reason for Visit * Reason Onset Date Comments Med Refill 04/12/2024 Encounter Details Date Type Department Care Team (Late st Contact Info) Description 04/12/2024 Refill [facility] MEDICINE [address] [place], [place] [phone] Margie Barrientos DO [address] [place], [place] [phone] Social History Tobacco Use Types Packs/Day Years [...] with others, in a hotel, in a residential, living outside on the street, on a [...] documented as of this encounter Care Teams Bed Laborer Relationship Specialty Start Date End Date Margie Barrientos DO [address] [place] [phone] PCP - General Family Medicine 01/02/24 documented as of this encounter
--- OUTSIDE RECORDS SUMMARY | 2024-06-24 19:46 | XMS_ITS | Encounter Summary ---
Author Organization [employer] Address [address] [facility] [address] [place] [phone] Care Team Providers Care Machine Setter And Repairer Name Role Phone Margie Barrientos DO Primary Care Provider + [phone] Reason for Visit * Reason Onset Date Comments Med Refill 04/11/2024 Encounter Details Date Type Department Care Team (Late st Contact Info) Description 04/11/2024 Refill [facility] [address] [place], [place] [phone] Vlad Casanova MD [address] [place] [address] ROMIE (generalized anxiety disorder) Social History Tobacco Use Types Packs/Day Years [...] with others, in a hotel, in a retirement, living outside on the street, on a [...] documented as of this encounter Visit Diagnoses Diagnosis ROMIE (generalized anxiety disorder) Generalized anxiety disorder documented in this encounter Additional Health Concerns Assessment Noted Time PHQ-9 Depression Total Score: 12 024 11:16 AM EDT documented as of this encounter Care Teams Machine Setter And Repairer Relationship Specialty Start Date End Date Margie Barrientos DO [address] [place] [address] PCP - General Family Medicine 01/02/24 documented as of this encounter
--- OUTSIDE RECORDS SUMMARY | 2024-06-24 19:46 | XMS_ITS | Encounter Summary ---
Author Organization [employer] Address [address] [facility] [address] [place] [address] Care Team Providers Care Fork Lift Mechanic Name Role Phone Margie Barrientos DO Primary Care Provider + [phone] Reason for Visit * Reason Comments Med Refill Encounter Details Date Type Department Care Team (Late st Contact Info) Description 05/21/2024 Refill [facility] MEDICINE [address] [place], [place] [phone] Ayala Day CNM [address] [place], [place] [phone] Social History Tobacco Use Types Packs/Day Years [...] with others, in a hotel, in a usp, living outside on the street, on a [...] documented as of this encounter Care Teams Fork Lift Mechanic Relationship Specialty Start Date End Date Margie Barrientos DO [address] [place] [address] PCP - General Family Medicine 01/02/24 documented as of this encounter
--- OUTSIDE RECORDS SUMMARY | 2024-06-24 19:46 | XMS_ITS | Encounter Summary ---
Author Organization [facility] Address [address] [place] [address] Care Team Providers Care Director Of Accounts Payable Name Role Phone Margie Barrientos Primary Care Provider [phone]- [phone] Encounter Details Date Type Department Care Team (Late st Contact Info) Description 05/31/2024 Telephone [facility] Obstetrics and Gynecology [address] [place] [address] Refrigerating Oiler: Quin Lerner MD MPH [address] [place] [address] Social History Tobacco Use Types Packs/Day Years [...] encounter Miscellaneous Notes * Telephone Encounter - Yenny Vargas - 05/31/2024 10:55 AM EST Patient called to know the results of the LEEP Plastic Frame Inserter needed Thanks documented in this encounter Plan of Treatment Upcoming Encounters Date Type Department Care Team (Late st Contact Info) Description 12/02/2024 3:30 PM EDT Procedure visit [facility] Obstetrics and Gynecology [address] [place] [address] Refrigerating Oiler: Quin Lerner MD MPH [address] [place] [address] documented as of this encounter Visit Diagnoses Not on filedocumented in this encounter Care Teams Director Of Accounts Payable Relationship Specialty Start Date End Date Margie Barrientos [address] [place] [address] PCP - General Family Medicine 03/20/24 documented as of this encounter
--- OUTSIDE RECORDS SUMMARY | 2024-06-24 19:46 | XMS_ITS | Encounter Summary ---
Author Organization [facility] Address [address] [place] [address] Care Team Providers Care Monitor And Storage Bin Tender Name Role Phone Margie Barrientos Primary Care Provider +1- [phone] Reason for Visit * Reason Onset Date Comments Results 05/30/2024 Encounter Details Date Type Department Care Team (Late st Contact Info) Description 05/30/2024 Telephone [facility] Obstetrics and Gynecology [address] [place] [address] Web Services Architect: Quin Lerner MD MPH [address] [place] [address] Results Social History Tobacco Use Types Packs/Day Years [...] encounter Miscellaneous Notes * Telephone Encounter - Shyla Coughlin - 05/30/2024 2:20 PM EST Patient calling into office with adoption counselor [phone] Received results on mychart of biopsy on 05/[address] Cazares She is asking to speak to someone to explain to her the results documented in this encounter Plan of Treatment Upcoming Encounters Date Type Department Care Team (Late st Contact Info) Description 12/02/2024 3:30 PM EDT Procedure visit [facility] Obstetrics and Gynecology [address] [place] [phone] Web Services Architect: Quin Lerner MD MPH [address] [place] [phone] documented as of this encounter Visit Diagnoses Not on filedocumented in this encounter Care Teams Monitor And Storage Bin Tender Relationship Specialty Start Date End Date Margie Barrientos [address] [place] [address] PCP - General Family Medicine 03/20/24 documented as of this encounter
--- OUTSIDE RECORDS SUMMARY | 2024-06-24 19:46 | XMS_ITS | Encounter Summary ---
Author Organization [facility] Address [address] [place] [address] Care Team Providers Care Carbide Tool Maker Name Role Phone Margie Barrientos Primary Care Provider +1- [phone] Encounter Details Date Type Department Care Team (Late st Contact Info) Description 06/03/2024 Telephone [facility] Obstetrics and Gynecology [address] [place] [address] Glass Novelty Maker: Quin Lerner MD MPH [address] [place] [address] Social History Tobacco Use Types Packs/Day Years [...] encounter Miscellaneous Notes * Telephone Encounter - Quin Cazares MD MPH - 06/03/2024 4:00 PM EST Images from the original note were not included. Freight Representative Used: Yes Type of Freight Representative Used: Telephone Freight Representative Freight Representative Name/Number: [id number] Language: Pashto Reviewed results with patient including need for repeat colpo in 6 mo due to + ectocervical margins. Pt confirmed understanding. Quin Cazares MD, MPH [phone] documented in this encounter Plan of Treatment Upcoming Encounters Date Type Department Care Team (Late st Contact Info) Description 12/02/2024 3:30 PM EDT Procedure visit [facility] Obstetrics and Gynecology [address] [place] [address] Glass Novelty Maker: Quin Lerner MD MPH [address] [place] [address] documented as of this encounter Visit Diagnoses Not on filedocumented in this encounter Care Teams Carbide Tool Maker Relationship Specialty Start Date End Date Margie Barrientos [address] [place] [phone] PCP - General Family Medicine 03/20/24 documented as of this encounter
== END 2024-06-24 19:53 | disposition left against medical advice (07) ==
LOC: HO.ED 19:44
PROVIDERS: Emergency Provider Emergency Medicine; PCP Family Medicine
DX: R10.2 Pelvic and perineal pain (principal)
CPT/HCPCS: 99281